=== PATIENT | male | born 1980 | race Caucasian/White ===

== ENCOUNTER → 2019-12-21 11:32 | Outpatient (CLI) | payer MEDICAID, SELFPAY ==
[2019-12-21 15:46] LABS: Anion Gap 8 (5-15); BUN 15 mg/dL (7-18); Chloride 102 mmol/L (98-107); Cholesterol 276 mg/dL (200); Creatinine, Serum 0.79 mg/dL (0.70-1.30); EST Glomerular Filtration Rate 117 mL/min (>60); Est Glom Filt Rate - Afr Amer 142 mL/min (>60); Glucose 179 mg/dL (74-106); High Density Lipoprotein 43 mg/dL; Potassium 4.7 mmol/L (3.5-5.1); Sodium Level 137 mmol/L (136-145); Triglycerides 250 mg/dL; Very Low Density Lipoprotein 50 mg/dL (5-40)
[2019-12-21 15:48] LABS: Hemoglobin A1c 9.1 % (3.8-5.6)
== END ==
PROVIDERS: PCP Family Medicine; Referring Provider Family Medicine; Visit Provider Family Medicine
DX: E11.9 Type 2 diabetes mellitus without complications (principal); I10 Essential (primary) hypertension
CPT/HCPCS: 36415; 80048; 80061; 83036

== ENCOUNTER → 2020-03-04 09:43 | Outpatient (CLI) | payer MEDICAID, SELFPAY ==
--- NOTE | 2020-03-04 09:48 | RAD_ITS ---
STUDY: X-RAY - LUMBAR SPINE REASON FOR EXAM: Male, 39 years old. Sciatica right side TECHNIQUE: 5 view(s) of the lumbar spine were obtained including oblique views. COMPARISON: None FINDINGS: Normal lumbar lordosis. There is no substantial scoliosis. There is a normal alignment of the vertebrae. There is multilevel endplate spondylosis of the lumbar vertebrae. Minimal loss of height of the superior endplate of the L1 vertebrae. Normal disc space heights. The soft tissue structures are unremarkable. RAD/L/S Spine Min 4 Views IMPRESSION: Degenerative changes of the spine, as detailed above. Minimal loss of height of the superior endplate of the L1 vertebrae. Electronically Signed: Sourav Kennedy, at 9:22 EST , Service support ,
== END ==
PROVIDERS: PCP Family Medicine; Referring Provider Family Medicine; Visit Provider Family Medicine
DX: M54.30 Sciatica, unspecified side (principal)
CPT/HCPCS: 72110

== ENCOUNTER → 2020-03-20 10:31 | Outpatient (CLI) | payer MEDICAID, SELFPAY ==
[2020-03-20 12:40] LABS: Anion Gap 7 (5-15); BUN 16 mg/dL (7-18); BUN/Creat Ratio 15.8 RATIO (10-20); Calcium,Total 8.9 mg/dL (8.5-10.1); Chloride 107 mmol/L (98-107); Cholesterol 325 mg/dL (200); Creatinine, Serum 1.01 mg/dL (0.70-1.30); EST Glomerular Filtration Rate 88 mL/min (>60); Est Glom Filt Rate - Afr Amer 106 mL/min (>60); Glucose 199 mg/dL (74-106); High Density Lipoprotein 39 mg/dL; Potassium 4.4 mmol/L (3.5-5.1); Sodium Level 136 mmol/L (136-145); Triglycerides 427 mg/dL
== END ==
PROVIDERS: PCP Family Medicine; Referring Provider Family Medicine; Visit Provider Family Medicine
DX: I10 Essential (primary) hypertension (principal)
CPT/HCPCS: 36415; 80048; 80061

== ENCOUNTER → 2020-04-11 12:41 | Outpatient (CLI) | payer MEDICAID, SELFPAY ==
[2020-04-10 10:03] VITALS: BMI 34.3
--- NOTE | 2020-04-11 12:42 | MRI_ITS ---
STUDY: MRI LUMBAR SPINE WITHOUT CONTRAST REASON FOR EXAM: Male, 39 years old. low back pain into R sciatica x few months TECHNIQUE: Standardized fat and water weighted pulse sequences were obtained in the sagittal and axial planes. COMPARISON: None FINDINGS: T12-L1: Normal endplates. Normal disc height, hydration and morphology. Normal bilateral facet joints. Normal central canal and bilateral lateral recesses. Normal bilateral intervertebral neural foramina. Normal lumbar lordosis. There is no substantial scoliosis. Normal conus medullaris that terminates at the L1-2: Normal endplates. Normal disc height, hydration and morphology. Normal bilateral facet joints. Normal central canal and bilateral lateral recesses. Normal bilateral intervertebral neural foramina. L2-3: Endplate spondylosis. Decreased disc height and small circumferential disc bulge. Degenerative changes of the bilateral facet joints. Mild narrowing of the central canal and bilateral intervertebral neural foramina. L3-4: Endplate spondylosis. Decreased disc height and small circumferential disc bulge. Degenerative changes of the bilateral facet joints. Moderate narrowing of the central canal and bilateral intervertebral neural foramina. There is a broad-based midline and right para midline disc ratio being on the right for nerve root. L4-5: Endplate spondylosis. Decreased disc height and small circumferential disc bulge. Degenerative changes of the bilateral facet joints. Moderate narrowing of the central canal and bilateral intervertebral neural foramina. There is a broad-based midline and right para midline disc herniation imaging on the right L5 nerve root. L5-S1: Endplate spondylosis. Decreased disc height and small circumferential disc bulge. Degenerative changes of the bilateral facet joints. Mild narrowing of the central canal and bilateral intervertebral neural foramina. There is broad-based central and paracentral disc herniation impinging on the right and left S1 nerve roots. Normal visualized sacral ala. Normal visualized paraspinous soft tissue structures. MRI/Spine Lumbar (Routine) IMPRESSION: Multilevel degenerative changes, as described above. Disc herniations noted at L3-4, L4-5 and L5-S1 as described above. Electronically Signed: Johnny Pineda MD at 16:03 EST Tel , Service support ,
== END ==
PROVIDERS: PCP Family Medicine; Referring Provider Orthopaedic Surgery; Visit Provider Orthopaedic Surgery
DX: G83.4 Cauda equina syndrome (principal); M54.5 Low back pain; R33.9 Retention of urine, unspecified
CPT/HCPCS: 72148

== ENCOUNTER 2020-05-09 13:35 | Observation (INO) | payer MEDICAID, SELFPAY ==
[2020-04-10 10:03] VITALS: BMI 34.3
--- NOTE | 2020-05-01 11:27 | EKG12_ITS ---
Test Reason : PREOP Blood Pressure : / mmHG Vent. Rate : 095 BPM Atrial Rate : 095 BPM P-R Int : 148 ms QRS Dur : 104 ms QT Int : 352 ms P-R-T Axes : 056 077 039 degrees QTc Int : 442 ms Normal sinus rhythm Normal ECG Confirmed by KARY VENCES, JEREMIAS ([id number]), associate editor MAZIN PUGH ([id number]) on 05/02/2020 1:07:36 PM Referred By: Anderson Celaya Confirmed By:JEREMIAS PRESTON MD
[2020-05-01 12:52] LABS: Anion Gap 8 (5-15); BUN 19 mg/dL (7-18); BUN/Creat Ratio 23.9 RATIO (10-20); Calcium,Total 9.2 mg/dL (8.5-10.1); Chloride 108 mmol/L (98-107); Creatinine, Serum 0.79 mg/dL (0.70-1.30); EST Glomerular Filtration Rate 116 mL/min (>60); Est Glom Filt Rate - Afr Amer 140 mL/min (>60); Glucose 117 mg/dL (74-106); Magnesium 2.5 mg/dL (1.6-2.6); Potassium 4.3 mmol/L (3.5-5.1); Sodium Level 140 mmol/L (136-145)
[2020-05-01 12:55] LABS: HIV - WCH Non-Reactive (Nonreactive)
[2020-05-02 03:07] LABS: HEPATITIS B SURFACE AG Negative (Negative); Hepatitis A AB, Total Negative (Negative); Hepatitis A IgM Antibody Negative (Negative); Hepatitis B Core AB IgM Negative (Negative); Hepatitis B Core Ab Total Negative (Negative); Hepatitis C Ab <0.1 s/co ratio (0.0-0.9)
[2020-05-02 08:54] LABS: Hep B Surface Antibodies Non Reactive (.)
[2020-05-08 10:30] LABS: Absolute Lymphocyte Count 3.79 X10^3/uL (0.83-4.51); Absolute Neutrophil Count 7.5 X10^3/uL (2.0-7.7); Basophil# 0.08 X10^3/uL; Basophil% 0.6 % (0-1); Eosinophil# 0.23 X10^3/uL; Eosinophils% 1.9 % (0-5); Hematocrit 51.1 % (40-54); Lymphocyte # 3.79 X10^3/ul (4.0); Lymphocyte % 30.8 % (19-41); Mean Corp Hgb Conc 33.3 g/dL (32-36); Mean Corpuscular Volume 87.2 fL (80-94); Mean Platelet Vol. 10.6 fl (6.2-12.0); Monocyte% 5.7 % (0-10); NRBC Flagged by Analyzer 0 % (0-5); Neutrophil # 7.47 X10^3/uL (2.7-7.7); Neutrophil % 60.6 % (47-70); Platelet Count 252 K/mm3 (150-450); RBC Distribution Width CV 13.8 % (11.6-14.6); RBC Distribution Width SD 44.3 fl (35.1-43.9); Red Blood Count 5.86 M/mm3 (4.6-6.2); White Blood Count 12.3 K/mm3 (4.4-11.0)
[2020-05-08 10:51] LABS: Hemoglobin A1c 7.5 % (3.8-5.6)
[2020-05-09] VITALS (15 sets, daily range): BP systolic 128–157; BP diastolic 76–97; PULSE 71–118; RESP 16–18; TEMP 36.1–36.8; O2SAT 91–100; BMI 35.1
--- NOTE | 2020-05-09 03:29 | HP_ITS ---
Intake Intake Visit Reasons: Lumbar Spine Accompanied by: Spouse Allergies meperidine [From Demerol] Adverse Reaction (Severe, Verified 05/01/20 09:41) hallucinaions Medications empagliflozin 25 mg tablet 25 mg PO DAILY 04/10/20 [History Confirmed 05/01/20] gabapentin 300 mg capsule 300 mg PO TID 04/10/20 [History Confirmed 05/01/20] glimepiride 2 mg tablet 2 mg PO DAILY 04/10/20 [History Confirmed 05/01/20] hydrocodone 10 mg-acetaminophen 325 mg tablet 1 tab PO Q4H PRN #60 tab 04/10/20 [Rx Confirmed 05/01/20] lisinopril 5 mg tablet 5 mg PO DAILY 04/10/20 [History Confirmed 05/01/20] naproxen 500 mg tablet 500 mg PO PRN PRN 04/10/20 [History Confirmed 05/01/20] tizanidine 4 mg tablet 4 mg PO PRN PRN 04/10/20 [History Confirmed 05/01/20] Bupropion HCl [Bupropion Xl] 300 mg PO DAILY 04/25/20 [History Confirmed 05/01/20] PFSH Medical History (Updated 04/10/20 @ 10:08 by Emily Brock) Arthritis (Acute) Diabetes mellitus (Acute) HTN (hypertension) (Chronic) Family History (Updated 04/10/20 @ 10:09 by Emily Brock) Father Hypertension Heart disease Social History (Updated 05/01/20 @ 10:[address] Anderson Celaya DO) Smoking Status: Current every day smoker tobacco type: cigarettes Tobacco: How many years used: 18 alcohol intake: current alcohol intake frequency: holidays/special occasions only HPI Lumbar Spine: Surgical H&P: Yes Details: Parts of this documentation were recorded by a scribe, this documentation accurately reflects the service provided and the decisions made by me, Dr. Anderson Celaya DO 05/01/20 0940. KALEY MASSEY is a 39 year old M here today to sign surgical consent. DOS: 05/09/2020. Kaley is here 8 days before his surgery. He is scheduled for lumbar laminectomy L3-4 and L4-5 on the right side. We discussed basically how the surgery would be performed what to expect postoperatively etc. he is in the company of his . I answered all her questions. We also spoke of possible risks and complications including possibly of coma paralysis infection meningitis failed to relieve symptoms blood clot in the legs blood clot in the lungs myocardial infarction stroke among others. I will see him again at surgery. Assessment & Plan Problems 1. HNP (herniated nucleus pulposus), lumbar M51.26 Coding Level of Care Code Off vis,est,level 2 Diagnoses HNP (herniated nucleus pulposus), lumbar M51.26 Time Spent (min) 20
[2020-05-09] MEDS: Acetaminophen 500 MG Tablet 1000 MG PO ×3 (06:19→21:13)
[2020-05-09] MEDS: Lactated Ringers 1,000 ML 100 ML IV ×5 (06:20→21:09)
[2020-05-09 06:30] LABS: Bedside Glucose 150 mg/dL (70-110)
[2020-05-09] MEDS: Thrombin 5,000 IU Kit (PSA) 5,000 IU Vial 5000 IU ×2 (08:35)
--- NOTE | 2020-05-09 08:42 | RAD_ITS ---
STUDY: X-RAY - LUMBAR SPINE REASON FOR EXAM: Male, 39 years old. Laminectomy. Intraoperative images. TECHNIQUE: A single lateral view(s) of the lumbar spine was obtained. COMPARISON: None FINDINGS: Single lateral view shows overlying surgical instruments located at the posterior aspect of the L5 vertebral body.. RAD/Spine 1 View Any Level IMPRESSION: Intraoperative documentation image as described. Electronically Signed: Josue Go MD at 12:30 EST , Service support ,
--- NOTE | 2020-05-09 10:53 | OP.PCM_ITS ---
Report of Operation Date of Procedure: 05/09/20 Description of Surgical Findings:: Preoperative diagnosis: #1 herniated disc L4-5 on the right #2 herniated disc L3-4 on the right Postoperative diagnoses: The same Procedure: #1 lumbar laminectomy L4-5 on the right #2 lumbar laminectomy L3-4 on the right Surgeon: Dr. Celaya emergency medicine physician assistant: Rocael BUSH Anesthesia: General endotracheal anesthesia administered by [facility] Estimated blood loss: 75 cc Drains: Medium Hemovac Complications: None Procedure: Patient was taken to the OR where he was placed under general endotracheal anesthesia on his gurney a Sharif catheter was inserted. Neuro monitoring placed all their leads on the patient. The patient was then placed on in the prone position on the Isaac frame. After appropriate positioning with care to protect his bony prominences his genitalia the brachial plexus bilaterally the ulnar nerves of both elbows and the cervical spine and facial features the back was prepped and draped in standard fashion. A longitudinal incision centered over L4 5 subcutaneous tissues were incised length of skin incision I then opened the lumbar fascia to the right of the spinous processes and elevated them off the lamina of 4 and little bit off the lamina of L5. An intraoperative x-ray was taken with a marker in place to assure that we were indeed at the L4-5 level which we were. We curetted all the soft tissues off of the ligamentum flavum and then released the underside of the ligamentum flavum using with curettes. I also thinned out the lamina with double-action rongeurs. I also performed a slight medial facetectomy using an osteotome 1/4 inch. Elevated all the ligamentum flavum off the underside of the lamina of L4. The laminectomy of L4 was then carried out with 45 degree Kerrison joint rongeurs and the lateral recesses were open with that and 90 degree Kerrison rongeurs and curved Kerrison rongeurs. In the fashion I was able to remove almost all of the ligamentum flavum on the lateral side. Then retracted the dura and the nerve root medialward exposing the herniated disc on the right side. Using a 15 blade I opened the protruded and thinned annulus. Note that it was mostly subligamentous. Protected that disc and other subligamentous disc with pituitary rongeurs. I also removed some of the disc from within the disc space with pituitary rongeurs. Bleeding was controlled with bipolar cautery and thrombin-soaked Gelfoam. Noted we thoroughly irrigated every 10 to 15 minutes in the course of the case with sterile saline to prevent infection. Then moved the Janeth retractor upward and first elevated the paravertebral muscles off the lamina of L3 all the way out lateralward and put a Janeth retractor: Lateral to the facet. Again I removed the soft tissues off of the ligamentum flavum at this level curettes. I then used curettes to release the underside of the ligament off the L3 lamina. I then perform medial facetectomy only slightly with 1/4 inch osteotome. I then thinned out the thickened lamina with double- action rongeurs bone wax was used to stop bony bleeding I begin the laminectomy process with 45 degree Kerrison rongeurs and carried carried up as far as the top of the ligamentum flavum I then remove the ligamentum flavum in retrograde fashion with 45 degree Kerrison rongeurs down to the lamina below. And used the curved leg 40 the Kerrison rongeurs to remove and open the lateral recess and remove all of the ligamentum flavum. Then retracted the L4 nerve root and dura medialward exposing the herniated disc I opened the posterior longitudinal ligament exposing the disc in 2 free fragments were removed. I then enlarged the tear in the annulus with a 15 blade to remove some of the nucleus from within the disc space with pituitary rongeurs. This completely decompressed the L4 nerve root. Again thorough irrigation was carried out frequently. Bipolar cautery was used to stop bleeders as well as thrombin-soaked Gelfoam. Had good hemostasis I then placed amnionic membrane patch over each of the 2 laminectomy sites. These were covered over it with Gelfoam. A medium Hemovac drain was then inserted. We then started closure I closed the lumbar fascia using [id number] suture with #1 Vicryl followed by closure of subcutaneous tissues in layers with 2-0 and 3-0 Vicryl in interrupted fashion and the skin was approximated using skin clips.. Sterile dressings were applied. That the medium Hemovac drain was sewed in place. Then her recover the patient in the OR moved him over to his hospital bed and taken to recovery in satisfactory condition this interoperative summary on Jonathan Salazar this is Dr. Celaya dictating.
[2020-05-09 11:31] LABS: Bedside Glucose 187 mg/dL (70-110)
[2020-05-09 12:10] LABS: Bedside Glucose 177 mg/dL (70-110)
[2020-05-09 14:56] LABS: Magnesium 2.4 mg/dL (1.6-2.6)
--- NOTE | 2020-05-09 15:49 | PN_ITS ---
Subjective: Patient seen and examined. Underwent lumbar laminectomy L4-L5 on the right and lumbar laminectomy L3-L4 on the right by Dr. Celaya. Patient denies significant pain currently. Denies new symptoms or complaints. He has a past medical history of hypertension, type 2 diabetes mellitus, depression, anxiety. States he had an hemoglobin A1c checked by his primary care provider a few months back however he does not know what his A1c was. - Physical Exam Vitals/I&O's: Vital Signs Temp Pulse Resp BP Pulse Ox 98.3 F 110 H 16 148/81 H 94 05/09/20 15:48 05/09/20 15:48 05/09/20 15:48 05/09/20 15:48 05/09/20 15:48 Oxygen Flow Rate (L/min) 6 Oxygen Delivery Method Room Air Weight: 281 lb 1.43 oz Body Mass Index (BMI) 35.1 Finger Stick Blood Glucose 177 Intake and Output for Last 24 Hours 05/07/20 05/08/20 05/09/20 23:59 23:59 23:59 Intake Total 3222.5 / 3222.5 Output Total 945 / 945 Balance 2277.5 / 2277.5 General: Alert, Oriented x3, Cooperative HEENT: Atraumatic, PERRLA, EOMI, Normocephalic Neck: Supple, No JVD, Negative Carotid Bruits Lungs: Clear to auscultation, Normal air movement Cardiovascular: Regular rate, No murmurs Abdomen: Bowel Sounds Present, Soft, Non Tender, Non-Distended Extremities: No clubbing, No cyanosis, No edema Skin: No rashes, No breakdown, - - Lumbar back postop dressing intact Musculoskeletal: No Tenderness to Palpation of Joints or Extremities, - - Left calf muscle wasting from prior injury Neurological: Cranial nerves II-XII grossly intact, Neuro grossly intact Psych/Mental Status: Normal Affect, Appropriate Microbiology Past 72 Hours 05/08/20 09:45 Interface Orders SARS-CoV-2 Antigen (Rapid) - Final Laboratory Results 05/09/20 06:16: POC Glucose 150 H 05/09/20 11:26: POC Glucose 187 H 05/09/20 12:04: POC Glucose 177 H 05/09/20 14:39: Magnesium 2.4 Current Medications Acetaminophen (Acetaminophen 500 Mg Tablet) 1,000 mg PO Q8 VALERI Hydrocodone Bitart/Acetaminophen (Hydrocodone Bitartrate/Apap 5/325 Tablet) 1 tablet PO Q4H PRN PRN PRN Reason: pain 6-10/10 Bupropion HCl (Bupropion (Xl) 300 Mg Tablet.Xl) 300 mg PO DAILY [facility] Dextrose (Dextrose 50%-Water 25 Gm/50 Ml Disp.Syrin) 0 gm IV X1 PRN; Protocol PRN Reason: Hypoglycemia Diazepam (Diazepam 5 Mg Tablet) 10 mg PO Q6H PRN PRN PRN Reason: Muscle Spasms Enteral Nutritional Formula (Ensure Surgery 237 Ml Liquid) 237 ml PO TIDCM [facility] Famotidine (Famotidine 20 Mg Tablet) 20 mg PO BID [facility] Gabapentin (Gabapentin 300 Mg Capsule) 300 mg PO TID [facility] Glucagon (Glucagon 1 Mg/Ml Syringe) 1 mg IM .X1 PRN PRN Reason: Hypoglycemia Hydralazine HCl (Hydralazine 20 Mg/Ml Vial) 10 mg IV Q4H PRN PRN PRN Reason: SBP > 160 Lactated Ringer's () 1,000 mls @ 100 mls/hr IV .Q10H [facility] Last Admin: 05/09/20 12:15 Dose: 100 mls/hr Documented by: Cefazolin Sodium () 1 gm in 50 mls @ 100 mls/hr IV Q8H [facility] Stop: 05/10/20 00:40 Influenza Virus Vaccine Quadrival (Influenza Vaccine (6mos+)/Pf 0.5 Ml Syringe) 0.5 ml IM .ONCE ONE Stop: 05/10/20 10:01 Insulin Human Lispro (Insulin Lispro 100 Unit/Ml Insuln.Pen) 0 unit SC ACHS [facility]; Protocol Lisinopril (Lisinopril 5 Mg Tablet) 5 mg PO DAILY [facility] Morphine Sulfate (Morphine 4 Mg/Ml Syringe) 2 - 4 mg IV Q2H PRN PRN PRN Reason: Pain Score 6-10 Ondansetron HCl (Ondansetron 4 Mg/2 Ml Vial) 4 mg IV Q8H PRN PRN PRN Reason: NAUSEA Senna/Docusate Sodium (Senna/Docusate Sodium 1 Tablet) 2 tablet PO BID [facility] Sodium Chloride (0.9% Nacl Peripheral Flush Adult/Peds) 5 - 15 ml IV UD PRN PRN Reason: SALINE FLUSH Tramadol HCl (Tramadol 50 Mg Tablet) 50 - 100 mg PO Q6H PRN PRN PRN Reason: Pain Score 4-5 Zolpidem Tartrate (Zolpidem Tartrate 5 Mg Tablet) 5 mg PO QHS PRN PRN PRN Reason: INSOMNIA Medical Necessity - Tobacco Use Smoking Status: Current every day smoker Tobacco Use: Cigarettes Assessment/Plan 1. Type 2 diabetes mellitus-hold oral regimen. Accu-Cheks with sliding scale insulin. Hemoglobin A1c 7.5%. 2. Hypertension-stable, continue lisinopril. As needed hydralazine for systolic blood pressure greater than 160. 3. Status post lumbar laminectomy L4-L5, L3-L4 on the right-management per Dr. Celaya, spine surgery. As needed pain regimen. PT/OT. 4. Depression/anxiety-on bupropion. 5. Obesity-encouraged diet lifestyle modifications. DVT prophylaxis-SCDs This patient was seen by AYESHA Kaye under the supervision of Dr. Chase.
[2020-05-09 17:00] LABS: Bedside Glucose 184 mg/dL (70-110)
[2020-05-09] MEDS: Cefazolin 1 GM/50 ML BAG IV (17:15)
[2020-05-09] MEDS: Gabapentin 300 MG Capsule PO ×2 (17:17)
[2020-05-09] MEDS: Insulin Lispro 100 UNIT/ML INSULN.PEN SC ×2 (17:18→21:19)
[2020-05-09] MEDS: Ensure Surgery 237 ML LIQUID PO (17:22)
[2020-05-09] MEDS: Lisinopril 5 MG Tablet PO (18:27)
[2020-05-09] MEDS: HYDROcodone Bitartrate/Apap 5/325 Tablet PO (18:31)
[2020-05-09] MEDS: Senna/Docusate Sodium 1 Tablet 2 TABLET PO (21:13)
[2020-05-09] MEDS: Famotidine 20 MG Tablet PO (21:13)
[2020-05-09 21:51] LABS: Bedside Glucose 179 mg/dL (70-110)
[2020-05-10] MEDS: Cefazolin 1 GM/50 ML BAG IV (00:33)
[2020-05-10 05:30] VITALS: BP 136/89; PULSE 97; RESP 16; TEMP 36.6; O2SAT 96
[2020-05-10] MEDS: Gabapentin 300 MG Capsule PO ×2 (06:26→13:13)
[2020-05-10] MEDS: Acetaminophen 500 MG Tablet 1000 MG PO (06:26)
[2020-05-10] MEDS: traMADol 50 MG Tablet PO (06:31)
[2020-05-10 06:39] LABS: Absolute Lymphocyte Count 3.88 X10^3/uL (0.83-4.51); Absolute Neutrophil Count 11.6 X10^3/uL (2.0-7.7); Basophil# 0.04 X10^3/uL; Basophil% 0.2 % (0-1); Eosinophil# 0.15 X10^3/uL; Eosinophils% 0.9 % (0-5); Hematocrit 49.1 % (40-54); Hemoglobin 15.9 g/dL (13.0-16.5); Lymphocyte # 3.88 X10^3/ul (4.0); Lymphocyte % 23.1 % (19-41); Mean Corp Hgb Conc 32.4 g/dL (32-36); Mean Corpuscular Hgb 28.5 pg (27.0-32.0); Mean Corpuscular Volume 88.2 fL (80-94); Mean Platelet Vol. 10.2 fl (6.2-12.0); Monocyte# 1.06 X10^3/uL; Monocyte% 6.3 % (0-10); NRBC Flagged by Analyzer 0 % (0-5); Neutrophil # 11.63 X10^3/uL (2.7-7.7); Neutrophil % 69.1 % (47-70); Platelet Count 279 K/mm3 (150-450); RBC Distribution Width CV 13.7 % (11.6-14.6); RBC Distribution Width SD 44.1 fl (35.1-43.9); Red Blood Count 5.57 M/mm3 (4.6-6.2); White Blood Count 16.8 K/mm3 (4.4-11.0)
[2020-05-10 06:46] LABS: Bedside Glucose 149 mg/dL (70-110)
[2020-05-10] MEDS: Lactated Ringers 1,000 ML 100 ML IV (06:46)
[2020-05-10 07:08] LABS: ALB/GLOB Ratio 0.9 RATIO (0.9-2.4); AST(SGOT) 15 U/L (15-37); Alanine Aminotransfer ALT/SGPT 23 U/L (16-61); Albumin, Serum 3.2 g/dL (3.2-5.0); Alkaline Phosphatase 62 U/L (45-117); Anion Gap 7 (5-15); BUN 15 mg/dL (7-18); BUN/Creat Ratio 20.4 RATIO (10-20); Calcium,Total 8.9 mg/dL (8.5-10.1); Chloride 105 mmol/L (98-107); Creatinine, Serum 0.73 mg/dL (0.70-1.30); EST Glomerular Filtration Rate 127 mL/min (>60); Est Glom Filt Rate - Afr Amer 153 mL/min (>60); Estimated Creatinine Clearance 163.98 ml/min; Globulin 3.6 g/dL (2.2-4.2); Glucose 123 mg/dL (74-106); Potassium 4.2 mmol/L (3.5-5.1); Protein, Total 6.8 g/dL (6.4-8.2); Sodium Level 139 mmol/L (136-145)
[2020-05-10 07:28] VITALS: O2SAT 93
[2020-05-10] MEDS: Lisinopril 5 MG Tablet PO (09:02)
[2020-05-10] MEDS: Senna/Docusate Sodium 1 Tablet 2 TABLET PO (09:02)
[2020-05-10] MEDS: Famotidine 20 MG Tablet PO (09:02)
[2020-05-10] MEDS: buPROPion (XL) 300 MG TABLET.XL PO (09:02)
[2020-05-10] MEDS: Ensure Surgery 237 ML LIQUID PO (09:03)
[2020-05-10 10:30] VITALS: BP 136/76; PULSE 97; RESP 18; TEMP 36.6; O2SAT 97
--- NOTE | 2020-05-10 10:52 | PCM.PROGNOTE ---
<Antonia Maldonado POLE TESTER - Last Filed: 05/10/20 10:59> Subjective: Patient seen and examined. Currently reports increased pain which he feels is related to his drain. Requesting Sharif to be removed so he can move around more freely. Denies other symptoms or complaints. - Physical Exam Vitals/I&O's: Vital Signs Temp Pulse Resp BP Pulse Ox 97.8 F 97 16 136/89 H 93 05/10/20 05:30 05/10/20 05:30 05/10/20 05:30 05/10/20 05:30 05/10/20 07:28 Oxygen Flow Rate (L/min) 6 Oxygen Delivery Method Room Air Weight: 281 lb 1.43 oz Body Mass Index (BMI) 35.1 Finger Stick Blood Glucose 177 Intake and Output for Last 24 Hours 05/08/20 05/09/20 05/10/20 23:59 23:59 23:59 Intake Total 4622.5 / 4622.5 / Output Total 1745 / 1745 3470 / 3470 Balance 2877.5 / 2877.5 -1458.33 / -1458.33 General: Alert, Oriented x3, Cooperative HEENT: Atraumatic, PERRLA, EOMI, Normocephalic Neck: Supple, No JVD, Negative Carotid Bruits Lungs: Clear to auscultation, Normal air movement Cardiovascular: Regular rate, No murmurs Abdomen: Bowel Sounds Present, Soft, Non Tender Extremities: No clubbing, No cyanosis, No edema, Capillary Refill Less than 3 Seconds Skin: No rashes, No breakdown, - - Lumbar dressing, drain intact. Musculoskeletal: No Tenderness to Palpation of Joints or Extremities Neurological: Cranial nerves II-XII grossly intact, Neuro grossly intact Psych/Mental Status: Normal Affect, Appropriate Microbiology Past 72 Hours 05/08/20 09:45 Interface Orders SARS-CoV-2 Antigen (Rapid) - Final Laboratory Results 05/09/20 11:26: POC Glucose 187 H 05/09/20 12:04: POC Glucose 177 H 05/09/20 14:39: Magnesium 2.4 05/09/20 16:56: POC Glucose 184 H 05/09/20 21:18: POC Glucose 179 H 05/10/20 06:15: WBC 16.8 H, RBC 5.57, Hgb 15.9, Hct 49.1, MCV 88.2, MCH 28.5, MCHC 32.4, RDW Std Deviation 44.1 H, RDW Coeff of Gilda 13.7, Plt Count 279, MPV 10.2, Immature Gran % (Auto) 0.400, Neut % (Auto) 69.1, Lymph % (Auto) 23.1, [place] % (Auto) 6.3, Eos % (Auto) 0.9, Baso % (Auto) 0.2, Absolute Neuts (auto) 11.6 H, Absolute Lymphs (auto) 3.88, Nucleated RBC % 0 05/10/20 06:15: Sodium 139, Potassium 4.2, Chloride 105, Carbon Dioxide 27.0, Anion Gap 7, BUN 15, Creatinine 0.73, Estim Creat Clear Calc 163.98, Est GFR (MDRD) Af Amer 153, Est GFR (MDRD) Non-Af 127, BUN/Creatinine Ratio 20.4 H, Glucose 123 H, Calcium 8.9, Total Bilirubin 0.50, AST 15, ALT 23, Alkaline Phosphatase 62, Total Protein 6.8, Albumin 3.2, Globulin 3.6, Albumin/Globulin Ratio 0.9 05/10/20 06:32: POC Glucose 149 H Current Medications Acetaminophen (Acetaminophen 500 Mg Tablet) 1,000 mg PO Q8 [facility] Last Admin: 05/10/20 06:26 Dose: 1,000 mg Documented by: Hydrocodone Bitart/Acetaminophen (Hydrocodone Bitartrate/Apap 5/325 Tablet) 1 tablet PO Q4H PRN PRN PRN Reason: pain 6-1010 Last Admin: 05/09/20 18:31 Dose: 1 tablet Documented by: Bupropion HCl (Bupropion (Xl) 300 Mg Tablet.Xl) 300 mg PO DAILY [facility] Last Admin: 05/10/20 09:02 Dose: 300 mg Documented by: Dextrose (Dextrose 50%-Water 25 Gm/50 Ml Disp.Syrin) 0 gm IV X1 PRN; Protocol PRN Reason: Hypoglycemia Diazepam (Diazepam 5 Mg Tablet) 10 mg PO Q6H PRN PRN PRN Reason: Muscle Spasms Enteral Nutritional Formula (Ensure Surgery 237 Ml Liquid) 237 ml PO TIDCM [facility] Last Admin: 05/10/20 09:03 Dose: 237 ml Documented by: Famotidine (Famotidine 20 Mg Tablet) 20 mg PO BID [facility] Last Admin: 05/10/20 09:02 Dose: 20 mg Documented by: Gabapentin (Gabapentin 300 Mg Capsule) 300 mg PO TID [facility] Last Admin: 05/10/20 06:26 Dose: 300 mg Documented by: Glucagon (Glucagon 1 Mg/Ml Syringe) 1 mg IM .X1 PRN PRN Reason: Hypoglycemia Hydralazine HCl (Hydralazine 20 Mg/Ml Vial) 10 mg IV Q4H PRN PRN PRN Reason: SBP > 160 Lactated Ringer's () 1,000 mls @ 100 mls/hr IV .Q10H [facility] Last Admin: 05/10/20 06:46 Dose: 100 mls/hr Documented by: Insulin Human Lispro (Insulin Lispro 100 Unit/Ml Insuln.Pen) 0 unit SC [facility]; Protocol Last Admin: 05/10/20 06:33 Dose: Not Given Documented by: Lisinopril (Lisinopril 5 Mg Tablet) 5 mg PO DAILY [facility] Last Admin: 05/10/20 09:02 Dose: 5 mg Documented by: Morphine Sulfate (Morphine 4 Mg/Ml Syringe) 2 - 4 mg IV Q2H PRN PRN PRN Reason: Pain Score 6-10 Ondansetron HCl (Ondansetron 4 Mg/2 Ml Vial) 4 mg IV Q8H PRN PRN PRN Reason: NAUSEA Senna/Docusate Sodium (Senna/Docusate Sodium 1 Tablet) 2 tablet PO BID [facility] Last Admin: 05/10/20 09:02 Dose: 2 tablet Documented by: Sodium Chloride (0.9% Nacl Peripheral Flush Adult/Peds) 5 - 15 ml IV UD PRN PRN Reason: SALINE FLUSH Tramadol HCl (Tramadol 50 Mg Tablet) 50 - 100 mg PO Q6H PRN PRN PRN Reason: Pain Score 4-5 Last Admin: 05/10/20 06:31 Dose: 100 mg Documented by: Zolpidem Tartrate (Zolpidem Tartrate 5 Mg Tablet) 5 mg PO QHS PRN PRN PRN Reason: INSOMNIA Medical Necessity - Tobacco Use Smoking Status: Current every day smoker Tobacco Use: Cigarettes Assessment/Plan 1. Type 2 diabetes mellitus-hold oral regimen. Accu-Cheks with sliding scale insulin. Hemoglobin A1c 7.5%. 2. Hypertension-stable, continue lisinopril. As needed hydralazine for systolic blood pressure greater than 160. 3. Status post lumbar laminectomy L4-L5, L3-L4 on the right-management per Dr. Celaya, spine surgery. As needed pain regimen. PT/OT. 4. Depression/anxiety-on bupropion. 5. Obesity-encouraged diet lifestyle modifications. DVT prophylaxis-SCDs This patient was seen by AYESHA Kaye under the supervision of Dr. Caraballo. <Renata Caraballo - Last Filed: 05/10/20 16:05> - Physical Exam Vitals/I&O's: Vital Signs Temp Pulse Resp BP Pulse Ox 97.9 F 97 18 136/76 H 97 05/10/20 10:30 05/10/20 10:30 05/10/20 10:30 05/10/20 10:30 05/10/20 10:30 Oxygen Flow Rate (L/min) 6 Oxygen Delivery Method Room Air Weight: 281 lb 1.43 oz Body Mass Index (BMI) 35.1 Finger Stick Blood Glucose 177 Intake and Output for Last 24 Hours 05/08/20 05/09/20 05/10/20 23:59 23:59 23:59 Intake Total 4622.5 / 4622.5 2491.67 / 2491.67 Output Total 1745 / 1745 4470 / 4470 Balance 2877.5 / 2877.5 -1978.33 / -1978.33 Microbiology Past 72 Hours 05/08/20 09:45 Interface Orders SARS-CoV-2 Antigen (Rapid) - Final Laboratory Results 05/09/20 16:56: POC Glucose 184 H 05/09/20 21:18: POC Glucose 179 H 05/10/20 06:15: WBC 16.8 H, RBC 5.57, Hgb 15.9, Hct 49.1, MCV 88.2, MCH 28.5, MCHC 32.4, RDW Std Deviation 44.1 H, RDW Coeff of Gilda 13.7, Plt Count 279, MPV 10.2, Immature Gran % (Auto) 0.400, Neut % (Auto) 69.1, Lymph % (Auto) 23.1, [place] % (Auto) 6.3, Eos % (Auto) 0.9, Baso % (Auto) 0.2, Absolute Neuts (auto) 11.6 H, Absolute Lymphs (auto) 3.88, Nucleated RBC % 0 05/10/20 06:15: Sodium 139, Potassium 4.2, Chloride 105, Carbon Dioxide 27.0, Anion Gap 7, BUN 15, Creatinine 0.73, Estim Creat Clear Calc 163.98, Est GFR (MDRD) Af Amer 153, Est GFR (MDRD) Non-Af 127, BUN/Creatinine Ratio 20.4 H, Glucose 123 H, Calcium 8.9, Total Bilirubin 0.50, AST 15, ALT 23, Alkaline Phosphatase 62, Total Protein 6.8, Albumin 3.2, Globulin 3.6, Albumin/Globulin Ratio 0.9 05/10/20 06:32: POC Glucose 149 H 05/10/20 11:17: POC Glucose 211 H Current Medications Acetaminophen (Acetaminophen 500 Mg Tablet) 1,000 mg PO Q8 [facility] Last Admin: 05/10/20 14:33 Dose: Not Given Documented by: Hydrocodone Bitart/Acetaminophen (Hydrocodone Bitartrate/Apap 5/325 Tablet) 1 tablet PO Q4H PRN PRN PRN Reason: pain 6-1010 Last Admin: 05/10/20 13:13 Dose: 1 tablet Documented by: Bupropion HCl (Bupropion (Xl) 300 Mg Tablet.Xl) 300 mg PO DAILY [facility] Last Admin: 05/10/20 09:02 Dose: 300 mg Documented by: Dextrose (Dextrose 50%-Water 25 Gm/50 Ml Disp.Syrin) 0 gm IV X1 PRN; Protocol PRN Reason: Hypoglycemia Diazepam (Diazepam 5 Mg Tablet) 10 mg PO Q6H PRN PRN PRN Reason: Muscle Spasms Enteral Nutritional Formula (Ensure Surgery 237 Ml Liquid) 237 ml PO TIDCM [facility] Last Admin: 05/10/20 13:15 Dose: Not Given Documented by: Famotidine (Famotidine 20 Mg Tablet) 20 mg PO BID [facility] Last Admin: 05/10/20 09:02 Dose: 20 mg Documented by: Gabapentin (Gabapentin 300 Mg Capsule) 300 mg PO TID [facility] Last Admin: 05/10/20 13:13 Dose: 300 mg Documented by: Glucagon (Glucagon 1 Mg/Ml Syringe) 1 mg IM .X1 PRN PRN Reason: Hypoglycemia Hydralazine HCl (Hydralazine 20 Mg/Ml Vial) 10 mg IV Q4H PRN PRN PRN Reason: SBP > 160 Lactated Ringer's () 1,000 mls @ 100 mls/hr IV .Q10H [facility] Last Admin: 05/10/20 06:46 Dose: 100 mls/hr Documented by: Insulin Human Lispro (Insulin Lispro 100 Unit/Ml Insuln.Pen) 0 unit SC ACHS [facility]; Protocol Last Admin: 05/10/20 11:18 Dose: 2 u Documented by: Lisinopril (Lisinopril 5 Mg Tablet) 5 mg PO DAILY [facility] Last Admin: 05/10/20 09:02 Dose: 5 mg Documented by: Morphine Sulfate (Morphine 4 Mg/Ml Syringe) 2 - 4 mg IV Q2H PRN PRN PRN Reason: Pain Score 6-10 Ondansetron HCl (Ondansetron 4 Mg/2 Ml Vial) 4 mg IV Q8H PRN PRN PRN Reason: NAUSEA Senna/Docusate Sodium (Senna/Docusate Sodium 1 Tablet) 2 tablet PO BID [facility] Last Admin: 05/10/20 09:02 Dose: 2 tablet Documented by: Sodium Chloride (0.9% Nacl Peripheral Flush Adult/Peds) 5 - 15 ml IV UD PRN PRN Reason: SALINE FLUSH Tramadol HCl (Tramadol 50 Mg Tablet) 50 - 100 mg PO Q6H PRN PRN PRN Reason: Pain Score 4-5 Last Admin: 05/10/20 06:31 Dose: 100 mg Documented by: Zolpidem Tartrate (Zolpidem Tartrate 5 Mg Tablet) 5 mg PO QHS PRN PRN PRN Reason: INSOMNIA Assessment/Plan Patient seen by Antonia Maldonado NP-Logan under my supervision Patient seen and examined. Today is POD 1 for lumbar laminectomy on L4-L5 and L3-L4. Hospitalist service was consulted for management of diabetes and hypertension. Patient complains of back pain this morning and said pain was 8 out of 10. He had no other complaints and review of systems otherwise negative. O/E: Vital Signs Temp Pulse Resp BP Pulse Ox 97.9 F 97 18 136/76 H 97 05/10/20 10:30 05/10/20 10:30 05/10/20 10:30 05/10/20 10:30 05/10/20 10:30 General: Alert, Oriented x3, Cooperative HEENT: Atraumatic, PERRLA, EOMI, Normocephalic Neck: Supple, No JVD, Negative Carotid Bruits Lungs: Clear to auscultation, Normal air movement Cardiovascular: Regular rate, No murmurs Abdomen: Bowel Sounds Present, Soft, Non Tender Extremities: No clubbing, No cyanosis, No edema, Capillary Refill Less than 3 Seconds Skin: No rashes, No breakdown, - - Lumbar dressing, back drain in place Musculoskeletal: No Tenderness to Palpation of Joints or Extremities Neurological: Cranial nerves II-XII grossly intact, Neuro grossly intact Psych/Mental Status: Normal Affect, Appropriate Plan is to continue with lisinopril. ISS. Accuchecks ACHS. IV hydralazine prn for elevated BP. Spine surgery on board. PT/OT consult. Fall precautions Rest as per Antonia Maldonado POLE TESTER-C's note, which I have reviewed and reconciled. Inpatient E&M: 13408 Subs Hosp L2
[2020-05-10] MEDS: Insulin Lispro 100 UNIT/ML INSULN.PEN SC (11:18)
[2020-05-10 11:25] LABS: Bedside Glucose 211 mg/dL (70-110)
--- NOTE | 2020-05-10 11:45 | CASEMGMT ---
RN ДМИТРИЙ Face to Face with patient for initial transition planning/care coordination assessment. RN CM introduced self and role at [facility]. Patient sitting at edge of bed, alert and oriented. Patient willing to participate in assessment and is able to answer all questions appropriately. Care providers, pharmacy, and demographics verified. Patient wishes to discharge home, denies need for home health at this time. Patient states he has no further needs or concerns at this time. CM to follow for discharge planning needs that may arise. PCP: Deepti Specialists: romie Celaya Pharmacy: [facility] Insurance: [employer] Prescription Benefit: yes Living Will/HPOA: none LNOK: Living Arrangements: Patient lives with in a 2 story home with option for bed and bath on first floor. Patient states he was independent at home. Transportation: DME/HHC: Patient states he has knee scooter and cane at home. Patient is requesting walker at discharge. Script received for FWW. Patient was provided a list of DME providers consistent with the patient?s preferred geographic region, medical needs, and insurance network. The patient?s preferred provider is [facility] [place]. Referral sent to [facility] [place] and arranged for deliver of walker to patient's room prior to discharge. Disposition Plan: Patient to discharge home with family support and follow-up plans in place. Gunjan GRAY, RN, CM
[2020-05-10] MEDS: HYDROcodone Bitartrate/Apap 5/325 Tablet PO (13:13)
--- NOTE | 2020-05-10 16:42 | PCM.DC.BLA ---
Discharge Summary Date of Admission: 05/09/20 Date of Discharge: 05/10/20 - Physical Exam Vitals/I&O's: Vital Signs Temp Pulse Resp BP Pulse Ox 97.9 F 97 18 136/76 H 97 05/10/20 10:30 05/10/20 10:30 05/10/20 10:30 05/10/20 10:30 05/10/20 10:30 Oxygen Flow Rate (L/min) 6 Oxygen Delivery Method Room Air Weight: 281 lb 1.43 oz Body Mass Index (BMI) 35.1 Finger Stick Blood Glucose 177 Intake and Output for Last 24 Hours 05/08/20 05/09/20 05/10/20 23:59 23:59 23:59 Intake Total 4622.5 / 4622.5 2491.67 / 2491.67 Output Total 1745 / 1745 4470 / 4470 Balance 2877.5 / 2877.5 -1977.33 / -1977.33 Microbiology Past 72 Hours 05/08/20 09:45 Interface Orders SARS-CoV-2 Antigen (Rapid) - Final Laboratory Results 05/09/20 16:56: POC Glucose 184 H 05/09/20 21:18: POC Glucose 179 H 05/10/20 06:15: WBC 16.8 H, RBC 5.57, Hgb 15.9, Hct 49.1, MCV 88.2, MCH 28.5, MCHC 32.4, RDW Std Deviation 44.1 H, RDW Coeff of Gilda 13.7, Plt Count 279, MPV 10.2, Immature Gran % (Auto) 0.400, Neut % (Auto) 69.1, Lymph % (Auto) 23.1, [place] % (Auto) 6.3, Eos % (Auto) 0.9, Baso % (Auto) 0.2, Absolute Neuts (auto) 11.6 H, Absolute Lymphs (auto) 3.88, Nucleated RBC % 0 05/10/20 06:15: Sodium 139, Potassium 4.2, Chloride 105, Carbon Dioxide 27.0, Anion Gap 7, BUN 15, Creatinine 0.73, Estim Creat Clear Calc 163.98, Est GFR (MDRD) Af Amer 153, Est GFR (MDRD) Non-Af 127, BUN/Creatinine Ratio 20.4 H, Glucose 123 H, Calcium 8.9, Total Bilirubin 0.50, AST 15, ALT 23, Alkaline Phosphatase 62, Total Protein 6.8, Albumin 3.2, Globulin 3.6, Albumin/Globulin Ratio 0.9 05/10/20 06:32: POC Glucose 149 H 05/10/20 11:17: POC Glucose 211 H Current Medications Acetaminophen (Acetaminophen 500 Mg Tablet) 1,000 mg PO Q8 [facility] Last Admin: 05/10/20 14:33 Dose: Not Given Documented by: Hydrocodone Bitart/Acetaminophen (Hydrocodone Bitartrate/Apap 5/325 Tablet) 1 tablet PO Q4H PRN PRN PRN Reason: pain 6-12/08 Last Admin: 05/10/20 13:13 Dose: 1 tablet Documented by: Bupropion HCl (Bupropion (Xl) 300 Mg Tablet.Xl) 300 mg PO DAILY [facility] Last Admin: 05/10/20 09:02 Dose: 300 mg Documented by: Dextrose (Dextrose 50%-Water 25 Gm/50 Ml Disp.Syrin) 0 gm IV X1 PRN; Protocol PRN Reason: Hypoglycemia Diazepam (Diazepam 5 Mg Tablet) 10 mg PO Q6H PRN PRN PRN Reason: Muscle Spasms Enteral Nutritional Formula (Ensure Surgery 237 Ml Liquid) 237 ml PO TIDCM [facility] Last Admin: 05/10/20 13:15 Dose: Not Given Documented by: Famotidine (Famotidine 20 Mg Tablet) 20 mg PO BID [facility] Last Admin: 05/10/20 09:02 Dose: 20 mg Documented by: Gabapentin (Gabapentin 300 Mg Capsule) 300 mg PO TID [facility] Last Admin: 05/10/20 13:13 Dose: 300 mg Documented by: Glucagon (Glucagon 1 Mg/Ml Syringe) 1 mg IM .X1 PRN PRN Reason: Hypoglycemia Hydralazine HCl (Hydralazine 20 Mg/Ml Vial) 10 mg IV Q4H PRN PRN PRN Reason: SBP > 160 Lactated Ringer's () 1,000 mls @ 100 mls/hr IV .Q10H [facility] Last Admin: 05/10/20 06:46 Dose: 100 mls/hr Documented by: Insulin Human Lispro (Insulin Lispro 100 Unit/Ml Insuln.Pen) 0 unit SC ACHS [facility]; Protocol Last Admin: 05/10/20 11:18 Dose: 2 u Documented by: Lisinopril (Lisinopril 5 Mg Tablet) 5 mg PO DAILY [facility] Last Admin: 05/10/20 09:02 Dose: 5 mg Documented by: Morphine Sulfate (Morphine 4 Mg/Ml Syringe) 2 - 4 mg IV Q2H PRN PRN PRN Reason: Pain Score 6-10 Ondansetron HCl (Ondansetron 4 Mg/2 Ml Vial) 4 mg IV Q8H PRN PRN PRN Reason: NAUSEA Senna/Docusate Sodium (Senna/Docusate Sodium 1 Tablet) 2 tablet PO BID [facility] Last Admin: 05/10/20 09:02 Dose: 2 tablet Documented by: Sodium Chloride (0.9% Nacl Peripheral Flush Adult/Peds) 5 - 15 ml IV UD PRN PRN Reason: SALINE FLUSH Tramadol HCl (Tramadol 50 Mg Tablet) 50 - 100 mg PO Q6H PRN PRN PRN Reason: Pain Score 4-5 Last Admin: 05/10/20 06:31 Dose: 100 mg Documented by: Zolpidem Tartrate (Zolpidem Tartrate 5 Mg Tablet) 5 mg PO QHS PRN PRN PRN Reason: INSOMNIA
--- NOTE | 2020-05-10 16:43 | DCINST_ITS ---
Discharge Activity: May Not Drive, May not drive while taking narcotic pain medications., Use Walker May shower in (days): 5 Weight Bearing Status: Full weight bearing Call your doctor if your incision/area has: Increased Pain/ Swelling, Foul Smelling Discharge Call your doctor if you observe: Fever of 101 or Higher, Inability to urinate, Shortness of breath, Chest pain, Uncontrolled pain Remove Dressing in (days):: 4 Cleanse incision/area with: Soap & Water Allergies/Adverse Reactions: Allergies meperidine [From Demerol] Adverse Reaction (Severe, Verified 05/09/20 05:35) hallucinaions Medications to take at Discharge empagliflozin 25 mg tablet 25 mg PO DAILY 04/10/20 glimepiride 2 mg tablet 2 mg PO DAILY 04/10/20 hydrocodone 10 mg-acetaminophen 325 mg tablet 1 tab PO Q4H PRN #60 tab 04/10/20 lisinopril 5 mg tablet 5 mg PO DAILY 04/10/20 naproxen 500 mg tablet 500 mg PO PRN PRN 04/10/20 tizanidine 4 mg tablet 4 mg PO PRN PRN 04/10/20 Bupropion HCl [Bupropion Xl] 300 mg PO DAILY 04/25/20 Insulin Lispro [Humalog KwikPen] See Protocol SC ACHS insuln.pen 05/10/20 Primary Care Physician: Jeremiah Tatum MD [Primary Care Provider] - Test Results: Test results from this visit will be discussed in further detail at your follow- up appointment, if applicable. Please Follow Up With: Dr Celaya Proposed Discharge Date: 05/10/20
[2020-05-10 16:48] VITALS: BP 144/83; PULSE 98; RESP 18; TEMP 36.7; O2SAT 98
[2020-05-10 16:49] VITALS: BP 144/83; PULSE 98; RESP 18; TEMP 36.7; O2SAT 97
== END 2020-05-10 17:28 | disposition home or self-care (01) ==
LOC: SDC 14:06 → MS3 14:06
PROVIDERS: Anesthesiology; Family Medicine; Admitting Provider Orthopaedic Surgery; PCP Family Medicine; Referring Provider Orthopaedic Surgery; Visit Provider Student in an Organized Health Care Education/Training Program
PROC: (CPT 63030; principal; 2020-05-09 07:00)
DX: M51.26 Other intervertebral disc displacement, lumbar region (principal); Z23 Encounter for immunization; I10 Essential (primary) hypertension; E11.9 Type 2 diabetes mellitus without complications; G25.81 Restless legs syndrome; E78.00 Pure hypercholesterolemia, unspecified; F41.9 Anxiety disorder, unspecified; F32.9 Major depressive disorder, single episode, unspecified; E66.9 Obesity, unspecified; F17.210 Nicotine dependence, cigarettes, uncomplicated; Z79.84 Long term (current) use of oral hypoglycemic drugs; Z20.828 Contact with and (suspected) exposure to other viral communicable diseases; Z79.899 Other long term (current) drug therapy; Z68.35 Body mass index [BMI] 35.0-35.9, adult
CPT/HCPCS: 63047; 63048; 36415; 72020; 80048; 80053; 82962; 83036; 83735; 85025; 86703; 86704; 86705; 86706; 86708; 86709; 86803; 87081; 87340; 87426; 93005; 96361; 96365; 96366; 97162; 97530; 99218; 99251; 99406; C9803; J7120; 90686; A4216; G0378; G0379; G0463

== ENCOUNTER → 2020-07-05 12:20 | Outpatient (CLI) | payer MEDICAID, SELFPAY ==
[2020-07-01 09:35] VITALS: BMI 35.1
--- NOTE | 2020-07-05 12:21 | MRI_ITS ---
STUDY: MRI LUMBAR SPINE WITH AND WITHOUT CONTRAST REASON FOR EXAM: Male, 39 years old. Low back pain x1 week. Possible herniated disc. TECHNIQUE: Standardized fat and water weighted pulse sequences were obtained in the sagittal and axial planes. 27ml Dotarem via IV was administered for the contrast portion of the examination. COMPARISON: MRI lumbar spine without contrast 04/11/2020. FINDINGS: T11-T12: (Sagittal only). Anterior marginal spurs. Normal endplates. Minimal disc space height narrowing. Small posterior bulging disc. Normal central canal and bilateral intervertebral neural foramina. T12-L1: (Sagittal only). Normal endplates. Normal disc height, hydration and morphology. Normal central canal and bilateral intervertebral neural foramina. Normal lumbar lordosis. There is no substantial scoliosis. Normal conus medullaris that terminates at the upper L1 vertebral body level. L1-2: Normal endplates. Normal disc height, hydration and morphology. Normal bilateral facet joints. Normal central canal and bilateral lateral recesses. Normal bilateral intervertebral neural foramina. L2-3: Normal endplates. Prominent anterior disc protrusion is unchanged. Minimal disc space height narrowing. Mild central canal stenosis with an AP canal diameter of 11 mm is unchanged. Prominent dorsal epidural lipomatosis. Normal bilateral lateral recesses. Normal facet joints. Normal bilateral intervertebral neural foramina. L3-4: Normal endplates. Minimal disc space height narrowing. Nonenhancing recurrent right posterior caudal disc extrusion surrounded by enhancing postoperative fibrosis. This is displacing the right L4 nerve root sleeve. Right L3 hemilaminectomy with enhancing fibrosis behind the laminectomy site and the right lateral extradural space. Partial right L3 inferior facetectomy. Normal remaining facet joints. Normal bilateral intervertebral neural foramina. L4-5: Normal endplates. Mild disc space height narrowing. Right L4 hemilaminotomy defect. Mild central canal stenosis with an AP canal diameter of 9 mm. Normal bilateral lateral recesses. Mild left degenerative facet arthropathy. Normal right facet joint. Normal bilateral intervertebral neural foramina. L5-S1: Normal endplates. Normal disc height. Small posterior bulging disc but no ventral extradural defect due to presence of ventral epidural fat. Mild central canal stenosis with an AP canal diameter of 8.4 mm. This is due to developmentally short pedicles. Normal bilateral lateral recesses. Normal facet joints. Normal bilateral intervertebral neural foramina. Normal visualized sacral ala. Normal visualized paraspinous soft tissue structures. Small midline postop seroma behind the L3 spinous process surrounding by enhancing postoperative fibrosis. The enhancing postoperative fibrosis extends down to overlie the L4 and L5 spinous processes. MRI/Spine Lumbar W/WO Contrast IMPRESSION: 1. Recurrent right L3-L4 posterior caudal disc extrusion surrounding by enhancing postoperative fibrosis. This is displacing the right L4 nerve root sleeve. 2. Small midline postop seroma behind the L3 spinous process surrounded by enhancing postoperative fibrosis. There is enhancing postoperative fibrosis extends caudally behind the L5 spinous process. Electronically Signed: Shree Guevara MD at 15:23 EDT , Service support ,
== END ==
PROVIDERS: PCP Family Medicine; Referring Provider Orthopaedic Surgery; Visit Provider Orthopaedic Surgery
DX: M51.26 Other intervertebral disc displacement, lumbar region (principal); Z98.890 Other specified postprocedural states
CPT/HCPCS: 72158; A9575

== ENCOUNTER 2020-09-03 05:09 | Inpatient (IN) | payer MEDICAID, SELFPAY ==
[2020-07-09 09:34] VITALS: BMI 35.1
[2020-08-28 12:36] LABS: Absolute Lymphocyte Count 3.61 X10^3/uL (0.83-4.51); Absolute Neutrophil Count 9.1 X10^3/uL (2.0-7.7); Basophil# 0.07 X10^3/uL; Basophil% 0.5 % (0-1); Eosinophil# 0.17 X10^3/uL; Eosinophils% 1.2 % (0-5); Hematocrit 49.7 % (40-54); Hemoglobin 16.3 g/dL (13.0-16.5); Lymphocyte # 3.61 X10^3/ul (0.83-4.51); Lymphocyte % 26.2 % (19-41); Mean Corp Hgb Conc 32.8 g/dL (32-36); Mean Corpuscular Hgb 27.8 pg (27.0-32.0); Mean Corpuscular Volume 84.7 fL (80-94); Mean Platelet Vol. 10.1 fl (6.2-12.0); Monocyte# 0.79 X10^3/uL; Monocyte% 5.7 % (0-10); NRBC Flagged by Analyzer 0 % (0-5); Neutrophil % 66.2 % (47-70); Platelet Count 290 K/mm3 (150-450); RBC Distribution Width CV 13.7 % (11.6-14.6); RBC Distribution Width SD 42.7 fl (35.1-43.9); Red Blood Count 5.87 M/mm3 (4.6-6.2); White Blood Count 13.8 K/mm3 (4.4-11.0)
[2020-08-28 12:57] LABS: Magnesium 2.3 mg/dL (1.6-2.6)
[2020-08-28 12:58] LABS: Anion Gap 7 (5-15); BUN 15 mg/dL (7-18); BUN/Creat Ratio 17.2 RATIO (10-20); Calcium,Total 9.2 mg/dL (8.5-10.1); Chloride 105 mmol/L (98-107); Creatinine, Serum 0.87 mg/dL (0.70-1.30); EST Glomerular Filtration Rate 104 mL/min (>60); Est Glom Filt Rate - Afr Amer 126 mL/min (>60); Glucose 152 mg/dL (74-106); Potassium 4.2 mmol/L (3.5-5.1); Sodium Level 134 mmol/L (136-145)
[2020-08-28 13:29] LABS: HIV - WCH Non-Reactive (Nonreactive)
[2020-08-28 15:24] LABS: Hemoglobin A1c 7.8 % (3.8-5.6)
[2020-08-29 05:07] LABS: HEPATITIS B SURFACE AG Negative (Negative); Hepatitis A AB, Total Negative (Negative); Hepatitis A IgM Antibody Negative (Negative); Hepatitis B Core AB IgM Negative (Negative); Hepatitis B Core Ab Total Negative (Negative); Hepatitis C Ab <0.1 s/co ratio (0.0-0.9)
[2020-08-29 13:27] LABS: Hep B Surface Antibodies Non Reactive (.)
[2020-09-02 13:42] VITALS: BMI 35.1
[2020-09-03] VITALS (13 sets, daily range): BP systolic 114–164; BP diastolic 70–96; PULSE 96–112; RESP 14–18; TEMP 36.6–37.4; O2SAT 92–99; BMI 34.4
--- NOTE | 2020-09-03 | DISC_PTH ---
PATIENT: KALEY MASSEY LOC: [facility] U#:[id number] AGE/SX: 39/M ROOM: IA318 RE09/03/[address]: Dr. Anderson Celaya DO : 1980 BED: 1 DIS: 09/07/2020 SPEC #: [id number] RECD: 09/04/20 07:21 STATUS: JAVI REChava #: [id number] RUPERT: 09/03/20 00:[address]: Anderson Celaya DEPT: SURGICAL PATHOLOGY RECD BY: Damián Ceballos ENTERED: 09/04/20 09:03 SP TYPE: DISC OTHR DR: MD Dr. Jeremiah Alvarado MD Tissues: Intervertebral disc, NOS Procedures: Surgery Specimen Level III HEADER OPERATION: ERAS, 360 fusion L3-L4 with repeat decompression PRE-OP DIAGNOSIS: Herniation at L3-L4 on right side TISSUE SUBMITTED: Disc MICROSCOPIC DIAGNOSIS Intervertebral disc, L3-L4, discectomy: Fragments of intervertebral disc with degenerative change. AM:logan 09/05/2020 MICROSCOPIC DESCRIPTION Slides are reviewed. GROSS DESCRIPTION Received in fixative is one container labeled with the patient's name and designated disc. The specimen consists of multiple irregular and indurated fragments of pink-white soft tissue that in aggregate measure 6 x 6 x 2 cm. Bowling Ball Finisher sections are submitted in two cassettes. / AM:logan 09/04/20 TC:5 CPT: 68668
[2020-09-03] MEDS: Acetaminophen 500 MG Tablet 1000 MG PO ×2 (06:04→19:04)
[2020-09-03] MEDS: Insulin Lispro 100 UNIT/ML INSULN.PEN SC ×3 (06:20→22:13)
[2020-09-03 06:30] LABS: Bedside Glucose 246 mg/dL (70-110)
[2020-09-03] MEDS: Lactated Ringers 1,000 ML 100 ML IV ×4 (07:03→17:30)
--- NOTE | 2020-09-03 07:30 | RAD_ITS ---
STUDY: X-RAY - LUMBAR SPINE REASON FOR EXAM: Male, 39 years old. 360 FUSION L3-L4 WITH REPEAT DECOMPRESSION TECHNIQUE: 1 view(s) of the lumbar spine were obtained. COMPARISON: None FINDINGS: A metallic localization instrument is seen. The tip is along the anterior aspect of the L2-L3 level. RAD/Spine 1 View Any Level IMPRESSION: The localization instrument is seen along the anterior aspect of the L2-L3 disc space level. Electronically Signed: Sourav Kennedy MD at 10:32 EDT , Service support ,
[2020-09-03] MEDS: Heparin 10,000 UNITS/10 ML Vial 10000 UNITS (08:54)
--- NOTE | 2020-09-03 09:11 | HP.PCM_ITS ---
History and Physical Date of Admission: 09/03/20 Assessment and Plan Plan Details Additional Comments: Procedures: #1 anterior lumbar interbody fusion L3-4 CPT code 27450 #2 application of spine plate L3-4 CPT code #78207/59 this plate is not part of cage insertion hence modifier 59 #3 insertion of anterior cage L3-4 CPT code #43865 #4 posterior fusion CPT code 92789 #5 repeat laminectomy L3-4 CPT code 76333 #6 nonsegmental internal fixation L3-4 Intake Intake Visit Reasons: Amb Documentation Chief Complaint: lamenectomy Allergies meperidine [From Demerol] Adverse Reaction (Severe, Verified 08/20/20 10:42) hallucinaions PFSH Medical History (Updated 08/21/20 @ 10:25 by Donna Atwood) Alcohol use Ambulates with cane Anxiety Arthritis Back pain Depression Diabetes mellitus High cholesterol History of pain when walking HTN (hypertension) Restless legs Smoker Wears dentures Wears partial dentures Surgical History (Updated 08/21/20 @ 10:25 by Donna Atwood) Hx of Achilles tendon repair Hx of arthroscopy of left knee Hx of laminectomy (~05/09/20) Family History (Updated 04/10/20 @ 10:09 by Emily Brock) Father Hypertension Heart disease Social History (Updated 06/21/20 @ 11:[address] Anderson Celaya, ) Smoking Status: Current every day smoker tobacco type: cigarettes Tobacco: How many years used: 18 alcohol intake: current alcohol intake frequency: holidays/special occasions only HPI Amb Documentation Details: This is history and physical on patient Jonathan Salazar. This should be dated August 28, 2020. Chief complaint: Severe pain in his back that radiates around the right side to the anterior right thigh. History of chief complaint: Patient had a laminectomy earlier this year at the L3-4 and L4-5 levels on the right side. The surgery was performed by me. He did very well until recently when he began having severe pain the right side of his low back that radiated to the right anterior thigh. An MRI scan was ordered with contrast that demonstrated a new herniation at L3-4 on the right side. Of course accounts for all his L4 symptoms. Allergies: Patient is allergic to Demerol. Current medications include bupropion 300 mg daily, Jardiance 25 mg p.o. daily glimepiride 4 mg p.o. daily, hydrocodone 10, lisinopril 5 mg p.o. daily. Past medical history: Is already documented above. Past surgical history: Is already documented above. Family history: Is positive for heart disease and hypertension. Social history: He is a current everyday smoker of cigarettes he only drinks occasionally. Review of systems: See below Physical examination: Examination of the head reveals he is normocephalic there are no lesions noted. Examination of the eyes reveals that the pupils are equal equally reactive light and accommodation extraocular muscles appear intact. Examination of the ears reveals no abnormalities with a normal tympanic membrane. Examination of the throat reveals no abnormalities there is no lymphadenopathy trachea is midline and movable there are no masses palpated Examination of the chest reveals that he has no adventitious sounds there is no rales or rhonchi and he has good movement of air in all wright Examination of the heart reveals a normal rate and rhythm with no murmurs. Examination of the abdomen reveals it is soft and nontender there is no organomegaly and there are no masses palpated. Musculoskeletal exam demonstrates that he has some weakness of the quads on the right side with decreased reflex of the quads on the right and a lot of pain with either flexion or extension of his lumbar sp ine. Neuro exam demonstrates the cranial nerves II through XII are grossly intact the patient is alert and well oriented x3. ROS Const All systems reviewed & are unremarkable except as noted in H Eyes Reports system reviewed and no additional complaints, except as documented ENT Reports system reviewed and no additional complaints, except as documented Card Reports system reviewed and no additional complaints, except as documented Resp Reports system reviewed and no additional complaints, except as documented GI Reports system reviewed and no additional complaints, except as documented Reports system reviewed and no additional complaints, except as documented Musc Reports back pain and Reports radiating pain into limb Skin/Breast Reports system reviewed and no additional complaints, except as documented Neuro Yes system reviewed and no additional complaints, except as documented Psych Reports anxiety and Reports depression Endo Reports system reviewed and no additional complaints, except as documented Matt/Lymph Reports system reviewed and no additional complaints, except as documented Aller/Immun Reports system reviewed and no additional complaints, except as documente
[2020-09-03] MEDS: THROMBIN (RECOMBINANT) 20,000 UNIT VIAL 20000 UNIT TOPICAL (10:29)
[2020-09-03 10:50] LABS: Bedside Glucose 236 mg/dL (70-110)
--- NOTE | 2020-09-03 11:00 | RAD_ITS ---
STUDY: X-RAY - LUMBAR SPINE REASON FOR EXAM: Male, 39 years old. 360 FUSION L3-L4 WITH REPEAT DECOMPRESSION TECHNIQUE: 1 view(s) of the lumbar spine were obtained. COMPARISON: Comparison is made with prior study done earlier in the day. FINDINGS: The patient is status post anterior fusion at the L3-L4 level with a prosthetic disc placement. RAD/Spine 1 View Any Level IMPRESSION: Status post anterior fusion at the L3-L4 level with prosthetic disc placement. Electronically Signed: Sourav Kennedy MD at 11:23 EDT , Service support ,
--- NOTE | 2020-09-03 11:13 | RAD_ITS ---
STUDY: X-RAY - LUMBAR SPINE REASON FOR EXAM: Male, 39 years old. 360 FUSION L3-L4 WITH REPEAT DECOMPRESSION TECHNIQUE: 1 view(s) of the lumbar spine were obtained. COMPARISON: Comparison is made with prior study done earlier today. FINDINGS: The patient is status post anterior fusion at the L3-L4 level with prosthetic disc placement. A posterior localization marker is seen. It lies along the posterior aspect of the L3-L4 disc space level. RAD/Spine 1 View Any Level IMPRESSION: Status post anterior fusion at the L3-L4 level with disc prosthesis. The localization instrument is seen overlying the posterior aspect of the L3-L4 disc space level. Electronically Signed: Sourav Kennedy MD at 13:57 EDT , Service support ,
--- NOTE | 2020-09-03 11:23 | PCM.OPRPT ---
Problems Associated Problem List Diagnoses (1) Herniated nucleus pulposus, L3-4: Report of Operation Date of Procedure: 09/03/20 Pre-Operative Diagnosis: Degenerative disc disease Post-Operative Diagnosis: Same Surgery/Procedure Performed:: 1 anterior lumbar interbody fusion L3-L4. 2. Placement of plate over the cage with 2 screws into L3 and 2 into L4. Type of Anesthesia: General Description of Procedure: Surgeon: Dr. Celaya co-surgeon: Dr. Vicente Polo Operation: Patient brought to the operating room. Underwent general anesthesia. Given appropriate antibiotics. Proper lead undergone the appropriate timeout consent. He was then prepped and draped in a sterile fashion. We did an incision just below the umbilicus and out lateral to the left lower quadrant. We dissected down onto the fascia and excised the anterior fascia. We freed this up all the way to the midline and then out lateral into the obliques and freed up along the area of the obliques. We then raised the anterior fascia superior and inferiorly. We then got lateral to the rectus and into the retroperitoneal plane. We then freed up along this onto the iliopsoas. We put in the Omni retractor. We then dissected up onto the disc space. Multiple venous and are arterial branches were ligated between clips. We freed up and marked the disc space and actually was in the L2-L3 disc space. We then confirmed the appropriate of the L3-L4 disc space. Once we had proper exposure of this patient then underwent the discectomy. We dilated up and then put a 14 mm cage. Bone marrow aspirate was put inside of this. Plate was placed on top and 235 mm screws placed in the L3 to 35 mm screws placed into L4. We then confirmed with x-ray good position of the plate and cage and the disc base. We then put a film over the plate removed out the retractors with good hemostasis. We closed the fascia with running strata fix. And then 2-0 and 3-0 Vicryl layers above this. Monocryl Dermabond for the skin. Patient will then be flipped over and the posterior all dictated separately. I was present during the entire part of the anterior.
--- NOTE | 2020-09-03 11:39 | PCM.OPRPT ---
Report of Operation Date of Procedure: 09/03/20 Description of Surgical Findings:: Preoperative diagnosis: Recurrent disc herniation L3-4 on the right Postoperative diagnoses: The same The procedures: #1 anterior lumbar interbody fusion L3-4 CPT code 65697 #2 application of spine plate L3-4 CPT code 43544/59 #3 insertion of cage L3-4 CPT code 67299 Cosurgeons: Dr. Celaya and Dr. Polo Pensionholder Information Clerk: Silvio from surgery Anesthesia: General endotracheal anesthesia administered by [facility] Estimated blood loss: 100 cc Drains: None Complications: None Procedure: Patient was taken to the OR where he was placed in the supine position on the operating table he was then placed under general endotracheal anesthesia. A Sharif catheter was inserted. Neuro monitoring placed their leads and the patient. The abdomen was then prepped and draped in standard fashion. Actual approach is described in Dr. Polo's operative summary. This Dr. Polo identified the L34 space and confirmed it with x-ray I came in. Then cut the anterior L3-4 annulus with a 10 blade and removed the nucleus with 2 anterior rongeurs and bowl curettes and ring curettes. To get back all the way to near the posterior longitudinal ligament. I used a bur to bur the bottom of L3 on each side to make it level in order to fit a cage in. I removed all remaining cartilage off both endplates with curettes. We then did our trials we started with a small cage but decided that he could easily use a large cage which was 27 x 40 mm. He did trials and found that he needed the large cage 8 degrees and 14 mm high. I then used a both the 12 and 40 mm broach to broach the space and get good bleeding endplate thorough irrigation was carried out note that about 30 minutes earlier we obtained the patient's stem cells from his left ASIS. I did this by punching a small hole in the skin entering through that hole with the needle. We used a Jamshidi needle tamped it in place and then I obtained 60 cc of bone marrow aspirate. This was then handed off to the plant and maintenance technician in the room she the stem cells from the red cells plasma etc. Once these were collected and concentrated about 8 or 10 times she gave me those back. At that time we then soaked the DBM sponges in the patient's stem cells. I then filled the 14 mm cage with 3 of the sponges I used 1-1/2 on each side of the cage. Again these were soaked with stem cells. Thorough irrigation was carried out at 1 last time and then I tamped it into place and countersunk it 2 to 3 mm. Following this we used a 27 mm plate by off-center to the left. I elevated the anterior longitudinal ligament above and below the disc space with cautery. The small anterior spurs were removed with double-action rongeurs. The 27 mm plate was then applied held in place while Dr. Polo use the all to insert each of the 4 screws to into L3 and 2 into L4. Use a technique where he would all first then entered with a self-tapping screws at all 4 corners. We used 35 mm screws. Following this we put a amnionic membrane over the anterior portion of the plate to prevent its adhesion adhesion to vessels. The closure is then described in Dr. Polo's operative summary. The end of operative summary on the anterior portion of Jonathan Salazar's surgery. This is Dr. Celaya dictating.
[2020-09-03] MEDS: Thrombin 5,000 IU Kit (PSA) 5,000 IU Vial 5000 IU TOPICAL (13:46)
[2020-09-03 14:16] LABS: Bedside Glucose 223 mg/dL (70-110)
--- NOTE | 2020-09-03 15:08 | PCM.OPRPT ---
Report of Operation Date of Procedure: 09/03/20 Description of Surgical Findings:: Preoperative diagnosis: Recurrent disc herniation L3-4 on the right with instability L4 radiculopathy intractable low back pain Postoperative diagnoses: The same Procedures: #1 posterior fusion L3-4 CPT code 33879 #2 repeat laminectomy L3-4 on the right CPT code 72339 #3 nonsegmental fixation L3-4 CPT code 72438 Surgeon: Dr. Celaya assistant superintendent: Rocael BUSH Anesthesia: General endotracheal anesthesia administered by [facility] Estimated blood loss: 300 cc loss with 125 cc given back via the Cell Saver Drains: Medium Hemovac Complications: None Procedure: After the first surgery that was done anteriorly the patient was then moved onto the prone position on the Isaac frame. After proper positioning with care to protect bony prominences the genitalia the brachial plexus bilaterally the ulnar nerves the brachial plexus the back was prepped and draped in standard fashion. I then made a longitudinal incision centered over the old incision. I work from the right side. I then elevated the paravertebral muscles off the lamina of L4 and the lamina of L3. Noted we took an intraoperative x-ray with a marker to assure that we were indeed at the right level. It was a tedious process because of scar formation and the fact that he had 2 laminotomy holes in the back that at L3-4 and L4-5. Did identify the facet and lamina lateralward and started removing the soft tissues off of the lamina and off of the facet using cautery. In this fashion I was able to identify the edges of the laminotomy. I then used a sharp small angled curettes to start releasing the soft tissues and scar tissue off of the lamina and the laminotomy site. Once this was done I used Kerrison rongeurs of different sizes to enlarge the laminotomy site identify the nerve root thought to be L4 continued releasing the soft tissues from the scar tissue eventually being able to retract the dura and nerve root medialward note that we identified the disc level and the tear in the annulus. Course we were able to identify the cage on the other side through the tear in the annulus note that once the lateral recess was open all pressure was taken off the L4 nerve root note that we did not find any free fragment of disc as I am sure he was removed from the anterior portion and pulled in without being known that it did. We checked the foramen with the hockey-stick and in excess and checked medialward with a hockey-stick and there was no more disc there and the L4 nerve root was completely decompressed. Then opened the left side elevated the paravertebral muscles off the lamina for the lamina of L3 on the left side we then put the super slide in place thorough irrigation was carried out and would bring it begin the process of fusion we used the bur to bur the lamina of 4 and the lamina of 3 and and the facet in between. Once this was done we placed remaining stem cells soaked DBM across the gutter and covering the area. The internal fixation device was then applied once it was centered and locked into place the locking Hope mechanisms were activated. This gave us a excellent posterior construct. Place Gelfoam over the laminotomy site and began closure after putting in a medium Hemovac drain close lumbar fascia using [id number] suture with #1 Vicryl for closure of subcutaneous tissues with 0 Vicryl and 2-0 Vicryl in interrupted fashion and the skin was approximated using skin clips sterile dressings were then applied. Note that the drain was sewn in place. We then recovered him in the OR moved to his hospital bed and took him to recovery in satisfactory condition. This is the end of operative summary #2 on Jonathan Salazar. This is Dr. Celaya dictating.
[2020-09-03 15:55] LABS: Bedside Glucose 246 mg/dL (70-110)
--- NOTE | 2020-09-03 18:48 | PN.HOSP_ITS ---
Documented by User: Tiffanie Curry NP-C 09/03/20 19:03 Subjective Subjective Patient is a 39-year-old male who presented for anterior lumbar interbody fusion L3-L4 with Dr. Celaya. Patient is currently laying in bed and very drowsy however he is appropriate and able to answer questions. Patient states that currently his pain is well controlled. Patient gives a medical history including diabetes mellitus type 2 and hypertension. Objective Data Objective Data Vital Signs: Vital Signs Temp Pulse Resp BP Pulse Ox 98.8 F 108 H 16 140/81 H 99 09/03/20 17:22 09/03/20 17:22 09/03/20 17:22 09/03/20 17:22 09/03/20 17:22 Oxygen Flow Rate (L/min) 6 Oxygen Delivery Method Simple Mask Weight: 275 lb 12.772 oz Body Mass Index (BMI) 34.4 Intake & Output: Intake and Output for Last 24 Hours 09/01/20 09/02/20 09/03/20 23:59 23:59 23:59 Intake Total 3222.5 / 3222.5 Output Total 1110 / 1110 Balance 2112.5 / 2112.5 Lab / Micro Data Result Diagrams: 08/28/20 12:04 08/28/20 12:04 Labs: Laboratory Results - last 24 hr 09/03/20 09/03/20 09/03/20 05:50 10:43 14:10 POC Glucose 246 H 236 H 223 H 09/03/20 15:49 POC Glucose 246 H Micro: Microbiology 08/30/20 10:55 Interface Orders SARS-CoV-2 Antigen (Rapid) - Final 08/28/20 12:04 Swab (Method) Nasal Screen MRSA/MSSA - Final Radiography Diagnostic Testing: Radiology Impression Spine X-Ray 09/03/20 07:30 IMPRESSION: The localization instrument is seen along the anterior aspect of the L2-L3 disc space level. Electronically Signed: Sourav Kennedy MD at 10:32 EDT , Service support , Spine X-Ray 09/03/20 11:00 IMPRESSION: Status post anterior fusion at the L3-L4 level with prosthetic disc placement. Electronically Signed: Sourav Kennedy MD at 11:23 EDT , Service support , Spine X-Ray 09/03/20 11:13 IMPRESSION: Status post anterior fusion at the L3-L4 level with disc prosthesis. The localization instrument is seen overlying the posterior aspect of the L3-L4 disc space level. Electronically Signed: Sourav Kennedy MD at 13:57 EDT , Service support , Physical Exam Const oriented x3 and no apparent distress Orientation / Consciousness: other Other Details: Sleepy following anesthesia for surgery HEENT normocephalic and head/scalp atraumatic Eyes conjunctivae normal and no scleral icterus Neck supple and no JVD Lymph Lymphatic: no lymphadenopathy noted Chest inspection of chest normal Resp normal respiratory effort, normal air movement, no retractions, no use of accessory muscles and clear to auscultation bilaterally Cardio regular rate, regular rhythm, S1 normal heart sound and S2 normal heart sound GI normal to inspection, nondistended, normoactive bowel sounds, soft to palpation and non-tender Extremity normal to inspection, full ROM, normal capillary refill and no clubbing, cyanosis or edema Skin no rashes or lesions noted, no wounds and skin turgor normal Neuro oriented x3, moves all extremities, no focal motor deficits and no sensory deficits noted Psych mental status grossly normal, thought process normal, cooperative and affect normal Assessment & Plan Assessment/Plan (1) Herniated nucleus pulposus, L3-4: PLAN: 1. Anterior lumbar interbody fusion L3-L4 -Surgery complete 09/03/2020 -Pain management regimen per Dr. Celaya 2. Hypertension -Vital signs currently stable -Continue lisinopril 5 mg daily -Vital signs per protocol, trend BP and heart rate 3. Diabetes mellitus type 2 -Patient currently takes Jardiance and glimepiride at home, will hold Jardiance while inpatient -AC at bedtime blood sugars with sliding scale insulin ordered -Hypoglycemia protocol ordered 4. Anxiety and depression -Continue bupropion daily DVT prophylaxis-SCDs This patient was seen by Tiffanie Curry NP-C under the supervision of Dr. Reddy. Documented by User: Dr. Carlitos Reddy MD 09/03/20 20:23 Objective Data Lab / Micro Data Result Diagrams: 08/28/20 12:04 08/28/20 12:04 Charges/Coding Addendum Addendum: Dr. Reddy: I personally reviewed the chart and examined the patient, and agree with the above findings. 39-year-old male presents with a lumbar fusion. Consulted for medical management of his diabetes and hypertension. Can continue all of his h ypertensive medications, will hold his oral hypoglycemics and place him on a sliding scale insulin. We will continue to monitor peripherally. Visit Charges Inpatient E&M: 16867 Subs Hosp L3
[2020-09-03] MEDS: Famotidine 20 MG Tablet PO (19:04)
[2020-09-03] MEDS: buPROPion (XL) 300 MG TABLET.XL PO (19:04)
[2020-09-03] MEDS: Senna/Docusate Sodium 1 Tablet 2 TABLET PO (19:05)
[2020-09-03] MEDS: Ensure Surgery 237 ML LIQUID PO (19:14)
[2020-09-03] MEDS: Cefazolin 1 GM/50 ML BAG IV (22:01)
[2020-09-04] VITALS (7 sets, daily range): BP systolic 127–158; BP diastolic 74–91; PULSE 91–108; RESP 16–18; TEMP 36.5–37.1; O2SAT 92–99
[2020-09-04] MEDS: Lactated Ringers 1,000 ML 100 ML IV (00:07)
[2020-09-04 00:10] LABS: Bedside Glucose 232 mg/dL (70-110)
[2020-09-04] MEDS: oxyCODONE 5 MG Tablet PO ×4 (02:40→18:15)
[2020-09-04] MEDS: Morphine 4 MG/ML Syringe IV ×4 (03:54→21:41)
[2020-09-04] MEDS: Cefazolin 1 GM/50 ML BAG IV (05:36)
[2020-09-04] MEDS: Acetaminophen 500 MG Tablet 1000 MG PO ×3 (06:36→21:40)
[2020-09-04] MEDS: Insulin Lispro 100 UNIT/ML INSULN.PEN SC ×2 (06:40→12:23)
[2020-09-04 07:16] LABS: Bedside Glucose 194 mg/dL (70-110)
[2020-09-04] MEDS: Glimepiride 4 MG Tablet PO (09:13)
[2020-09-04] MEDS: Famotidine 20 MG Tablet PO ×2 (09:13→21:41)
[2020-09-04] MEDS: Lisinopril 5 MG Tablet PO (09:14)
[2020-09-04] MEDS: Senna/Docusate Sodium 1 Tablet 2 TABLET PO ×2 (09:14→21:42)
[2020-09-04] MEDS: buPROPion (XL) 300 MG TABLET.XL PO (09:14)
--- NOTE | 2020-09-04 09:55 | CASEMGMT ---
RN CM Face to Face with patient for initial transition planning/care coordination assessment. RN CM introduced self and role at [facility]. Patient lying in bed, alert and oriented. Patient willing to participate in assessment and is able to answer all questions appropriately. Care providers, pharmacy, and demographics verified. Patient wishes to discharge home, denies need for home health at this time. Patient states he has no further needs or concerns at this time. CM to follow for discharge planning needs that may arise. PCP: Deepti Specialists: [facility] Pharmacy: [facility] Insurance: [employer] Prescription Benefit: yes Living Will/HPOA: none LNOK: Living Arrangements: Patient lives with in a 2 story home with bath on first floor. Patient states he was independent and able to ambulate stairs prior to surgery. Transportation: self/ DME/HHC: Patient states he has BSC, cane, walker, and rollator at home. Patient denies previous HHC or SNF Disposition Plan: Patient to discharge home with family support and follow-up plans in place. Gunjan GRAY, RN, CM
--- NOTE | 2020-09-04 10:47 | PCM.PROGNOTE ---
Subjective Subjective Patient is doing well. Resting in bed comfortably. Status post L3-L4 08/02/1958 fusion. Some mild discomfort in his back and abdomen. He is already been out of bed twice and doing well Objective Data Objective Data Vital Signs: Vital Signs Temp Pulse Resp BP Pulse Ox 98.2 F 102 H 18 139/86 H 92 09/04/20 09:05 09/04/20 09:05 09/04/20 09:05 09/04/20 09:05 09/04/20 09:05 Oxygen Flow Rate (L/min) 1 Oxygen Delivery Method Room Air Weight: 275 lb 12.772 oz Body Mass Index (BMI) 34.4 Intake & Output: Intake and Output for Last 24 Hours 09/02/20 09/03/20 09/04/20 23:59 23:59 23:59 Intake Total 4124.17 / 4124.17 738.25 / 738.25 Output Total 2150 / 2150 1700 / 1700 Balance 1974.17 / 1974.17 -961.75 / -961.75 Lab / Micro Data Result Diagrams: 08/28/20 12:04 08/28/20 12:04 Labs: Laboratory Results - last 24 hr 09/03/20 09/03/20 09/03/20 10:43 14:10 15:49 POC Glucose 236 H 223 H 246 H 09/03/20 09/04/20 21:59 06:39 POC Glucose 232 H 194 H Micro: Microbiology 08/30/20 10:55 Interface Orders SARS-CoV-2 Antigen (Rapid) - Final 08/28/20 12:04 Swab (Method) Nasal Screen MRSA/MSSA - Final Radiography Diagnostic Testing: Radiology Impression Spine X-Ray 09/03/20 11:00 IMPRESSION: Status post anterior fusion at the L3-L4 level with prosthetic disc placement. Electronically Signed: Sourav Kennedy MD at 11:23 EDT , Service support , Spine X-Ray 09/03/20 11:13 IMPRESSION: Status post anterior fusion at the L3-L4 level with disc prosthesis. The localization instrument is seen overlying the posterior aspect of the L3-L4 disc space level. Electronically Signed: Sourav Kennedy MD at 13:57 EDT , Service support , Physical Exam Narrative Patient is awake alert oriented Mild discomfort abdomen and back Afebrile vital signs stable Palpable pedal pulse Mild discomfort left lower quadrant Assessment & Plan Assessment/Plan (1) Herniated nucleus pulposus, L3-4: PLAN: Patient doing well status post L3-L4 360 fusion. Continue to increase activity as tolerated.
[2020-09-04 11:40] LABS: Bedside Glucose 182 mg/dL (70-110)
--- NOTE | 2020-09-04 12:15 | PCM.PN.ORT ---
Objective Data Objective Data Vital Signs: Vital Signs Temp Pulse Resp BP Pulse Ox 98.2 F 102 H 18 139/86 H 92 09/04/20 09:05 09/04/20 09:05 09/04/20 09:05 09/04/20 09:05 09/04/20 09:05 Oxygen Flow Rate (L/min) 1 Oxygen Delivery Method Room Air Weight: 275 lb 12.772 oz Body Mass Index (BMI) 34.4 Intake & Output: Intake and Output for Last 24 Hours 09/02/20 09/03/20 09/04/20 23:59 23:59 23:59 Intake Total 4124.17 / 4124.17 738.25 / 738.25 Output Total 2150 / 2150 1700 / 1700 Balance 1974.17 / 1973.17 -961.75 / -961.75 Lab / Micro Data Result Diagrams: 08/28/20 12:04 08/28/20 12:04 Labs: Laboratory Results - last 24 hr 09/03/20 09/03/20 09/03/20 14:10 15:49 21:59 POC Glucose 223 H 246 H 232 H 09/04/20 09/04/20 06:39 11:35 POC Glucose 194 H 182 H Micro: Microbiology 08/30/20 10:55 Interface Orders SARS-CoV-2 Antigen (Rapid) - Final 08/28/20 12:04 Swab (Method) Nasal Screen MRSA/MSSA - Final Radiography Diagnostic Testing: Radiology Impression Spine X-Ray 09/03/20 11:13 IMPRESSION: Status post anterior fusion at the L3-L4 level with disc prosthesis. The localization instrument is seen overlying the posterior aspect of the L3-L4 disc space level. Electronically Signed: Sourav Kennedy MD at 13:57 EDT , Service support , Procedure Criteria Elective Risks - COVID COVID Risk Discussion: Postop day #1. The patient is complaining of abdominal pain around the incision site. He states that he is abdomen hurts significantly more than his low back. His right thigh pain is completely resolved. Neurologically he is intact in both lower extremities. Dressings are both dry. The drain will be left in 1 more day as he has had significant drainage. Progress is satisfactory.
[2020-09-04] MEDS: 0.9% Saline Lock 10 ML Syringe IV ×2 (12:20→16:52)
[2020-09-04] MEDS: diazePAM 5 MG Tablet PO (14:07)
[2020-09-04 16:45] LABS: Bedside Glucose 142 mg/dL (70-110)
[2020-09-04 22:20] LABS: Bedside Glucose 131 mg/dL (70-110)
[2020-09-05] MEDS: 0.9% Saline Lock 10 ML Syringe IV ×6 (01:55→21:31)
[2020-09-05] MEDS: Morphine 4 MG/ML Syringe IV ×5 (01:55→17:25)
[2020-09-05 02:05] VITALS: BP 149/86; PULSE 107; RESP 17; TEMP 36.8; O2SAT 93
[2020-09-05] MEDS: Acetaminophen 500 MG Tablet 1000 MG PO ×3 (06:12→20:38)
[2020-09-05] MEDS: Insulin Lispro 100 UNIT/ML INSULN.PEN SC (06:15)
[2020-09-05 06:26] LABS: Bedside Glucose 170 mg/dL (70-110)
[2020-09-05 07:46] VITALS: BP 141/86; PULSE 106; RESP 18; TEMP 36.7; O2SAT 92
[2020-09-05] MEDS: oxyCODONE 5 MG Tablet PO ×3 (07:57→20:35)
[2020-09-05] MEDS: Glimepiride 4 MG Tablet PO (09:40)
[2020-09-05] MEDS: Lisinopril 5 MG Tablet PO (09:40)
[2020-09-05] MEDS: Famotidine 20 MG Tablet PO ×2 (09:40→20:38)
[2020-09-05] MEDS: buPROPion (XL) 300 MG TABLET.XL PO (09:40)
[2020-09-05] MEDS: Senna/Docusate Sodium 1 Tablet 2 TABLET PO ×2 (09:42→20:39)
[2020-09-05] MEDS: diazePAM 5 MG Tablet PO (09:46)
[2020-09-05 10:52] VITALS: O2SAT 90
[2020-09-05 11:15] LABS: Bedside Glucose 146 mg/dL (70-110)
[2020-09-05 12:07] VITALS: BP 173/94; PULSE 115; RESP 18; TEMP 36.3; O2SAT 96
--- NOTE | 2020-09-05 14:29 | PN.ORTHO_ITS ---
Objective Data Objective Data Vital Signs: Vital Signs Temp Pulse Resp BP Pulse Ox 97.4 F L 115 H 18 173/94 H 96 09/05/20 12:07 09/05/20 12:07 09/05/20 12:09/05/20 12:07 09/05/20 12:07 Oxygen Flow Rate (L/min) 1 Oxygen Delivery Method Room Air Weight: 275 lb 12.772 oz Body Mass Index (BMI) 34.4 Intake & Output: Intake and Output for Last 24 Hours 09/03/20 09/04/20 09/05/20 23:59 23:59 23:59 Intake Total 4124.17 / 4124.17 2378.25 / 2378.25 1200 / 1200 Output Total 2150 / 2150 3370 / 3370 1050 / 1050 Balance 1974.17 / 1973.17 -991.75 / -991.75 150 / 150 Lab / Micro Data Result Diagrams: 08/28/20 12:04 08/28/20 12:04 Labs: Laboratory Results - last 24 hr 09/04/20 09/04/20 09/05/20 16:41 22:16 06:14 POC Glucose 142 H 131 H 170 H 09/05/20 11:07 POC Glucose 146 H Micro: Microbiology 08/30/20 10:55 Interface Orders SARS-CoV-2 Antigen (Rapid) - Final 08/28/20 12:04 Swab (Method) Nasal Screen MRSA/MSSA - Final Procedure Criteria Elective Risks - COVID COVID Risk Discussion: Postop day #2. Patient is complaining of a lot of low back pain and abdominal pain of course. He states that he is not hungry which is not expected as hurts bowel sounds are hypo at this time. Is not have a f ull-fledged ileus however he is on the edge of 1. We will keep him on clear liquids for now. He seems to be having a lot of anxiety right now more than usual. He has long history of anxiety. Went ahead and started him on Ativan 2 mg every 8 hours as needed for his anxiety. And then his pulse was 115 again probably because of the anxiety. Blood pressure was a little elevated also. Likely his O2 sats are good. We change his dressing and pulled the drain as he has hardly any drainage anymore. Incision is dry and healing well. Neurologically he is intact in both lower extremities. It helps at the Ativan will help his anxiety. By his own admission this is a lot more than anxiety than usual.
[2020-09-05 14:31] VITALS: BP 152/94; PULSE 108; RESP 18; TEMP 37.2; O2SAT 92
--- NOTE | 2020-09-05 16:59 | PN.HOSP_ITS ---
Subjective Subjective Had significant anxiety reaction today, leading to tachycardia and hypertension. This is all stemming from his father's heart attack 10 years ago when his father suddenly in his arms all they are working on a car together, he does have some codependent tendencies. He initially was on BuSpar, and this was dis continued and replaced by Wellbutrin by his PCP and he is on 300 mg daily. I did discuss with him the addition of Zoloft to his regimen as well. His primary attending also added Ativan as needed. Objective Data Objective Data Vital Signs: Vital Signs Temp Pulse Resp BP Pulse Ox 99 F 108 H 18 152/94 H 92 09/05/20 14:31 09/05/20 14:31 09/05/20 14:31 09/05/20 14:31 09/05/20 14:31 Oxygen Flow Rate (L/min) 1 Oxygen Delivery Method Room Air Weight: 275 lb 12.772 oz Body Mass Index (BMI) 34.4 Intake & Output: Intake and Output for Last 24 Hours 09/04/20 09/05/20 09/06/20 03:59 03:59 03:59 Intake Total 4444.17 / 4444.17 2058.25 / 2058.25 1200 / 1200 Output Total 2150 / 2150 3370 / 3370 1050 / 1050 Balance 2294.17 / 2294.17 -1311.75 / -1311.75 150 / 150 Lab / Micro Data Result Diagrams: 08/28/20 12:04 08/28/20 12:04 Labs: Laboratory Results - last 24 hr 09/04/20 09/05/20 09/05/20 22:16 06:14 11:07 POC Glucose 131 H 170 H 146 H Micro: Microbiology 08/30/20 10:55 Interface Orders SARS-CoV-2 Antigen (Rapid) - Final 08/28/20 12:04 Swab (Method) Nasal Screen MRSA/MSSA - Final Physical Exam Const alert, oriented x3 and no apparent distress General Appearance: cooperative HEENT normocephalic and moist oral mucous membranes Head and Scalp: normocephalic Eyes PERRL, EOMs intact bilaterally and conjunctivae normal Neck supple and no JVD Resp normal respiratory effort, no retractions, no use of accessory muscles and clear to auscultation bilaterally Auscultation: Negative for crackles, rales, rhonchi or wheezes Cardio regular rate, regular rhythm, S1 normal heart sound, S2 normal heart sound and no murmurs GI soft to palpation, non-tender and non-distended; Negative for hepatosplenomegaly Extremity no clubbing, cyanosis or edema Skin no rashes or lesions noted Neuro no focal motor deficits and no sensory deficits noted Psych Mood & Affect: depressed and anxious Assessment & Plan Assessment/Plan (1) Herniated nucleus pulposus, L3-4: PLAN: 1. Anterior lumbar interbody fusion L3-L4 -Surgery complete 09/03/2020 -Pain management regimen per Dr. Celaya 2. Hypertension -Vital signs currently stable -Continue lisinopril 5 mg daily -Vital signs per protocol, trend BP and heart rate 3. Diabetes mellitus type 2 -Patient currently takes Jardiance and glimepiride at home, will hold Jardiance while inpatient -AC at bedtime blood sugars with sliding scale insulin ordered -Hypoglycemia protocol ordered 4. Anxiety and depression -Continue bupropion daily -Given the above discussion with the patient, will continue with Zoloft as well as the Ativan as needed for his anxiety. I anticipate that with appropriate treatment of his anxiety and his depression that his blood pressure and tachycardia will likely improve. This is also likely compounded by his pain from surgery. DVT: SCDs Charges/Coding Visit Charges Inpatient E&M: 61421 Subs Hosp L2
[2020-09-05 17:16] LABS: Bedside Glucose 112 mg/dL (70-110)
[2020-09-05] MEDS: Sertraline 50 MG Tablet PO (17:22)
[2020-09-05 20:31] VITALS: BP 153/84; PULSE 108; RESP 18; TEMP 36.4; O2SAT 95
--- NOTE | 2020-09-05 21:32 | NURSING ---
pt walked a full lap in the zhang with the quality assurance coach. per quality assurance coach pt tolerated well.
[2020-09-05 21:45] LABS: Bedside Glucose 141 mg/dL (70-110)
[2020-09-06] VITALS (8 sets, daily range): BP systolic 136–168; BP diastolic 84–107; PULSE 95–102; RESP 16–18; TEMP 36.4–36.7; O2SAT 92–97
[2020-09-06] MEDS: oxyCODONE 5 MG Tablet PO ×4 (02:17→18:15)
[2020-09-06] MEDS: hydrALAZINE 20 MG/ML Vial 5 MG IV (02:58)
[2020-09-06] MEDS: 0.9% Saline Lock 10 ML Syringe IV ×2 (02:58→21:11)
[2020-09-06] MEDS: Acetaminophen 500 MG Tablet 1000 MG PO ×3 (06:33→21:12)
[2020-09-06] MEDS: LORazepam 1 MG Tablet 2 MG PO ×2 (06:39→21:12)
[2020-09-06 07:00] LABS: Bedside Glucose 147 mg/dL (70-110)
[2020-09-06] MEDS: Glimepiride 4 MG Tablet PO (09:10)
[2020-09-06] MEDS: Lisinopril 5 MG Tablet PO (09:10)
[2020-09-06] MEDS: Sertraline 50 MG Tablet PO (09:10)
[2020-09-06] MEDS: buPROPion (XL) 300 MG TABLET.XL PO (09:10)
[2020-09-06] MEDS: Famotidine 20 MG Tablet PO ×2 (09:10→21:13)
[2020-09-06] MEDS: Senna/Docusate Sodium 1 Tablet 2 TABLET PO ×2 (10:17→21:13)
[2020-09-06] MEDS: Insulin Lispro 100 UNIT/ML INSULN.PEN SC (12:04)
[2020-09-06 12:10] LABS: Bedside Glucose 176 mg/dL (70-110)
--- NOTE | 2020-09-06 13:09 | PCM.PN.ORT ---
Objective Data Objective Data Vital Signs: Vital Signs Temp Pulse Resp BP Pulse Ox 98.0 F 99 16 153/99 H 94 09/06/20 09:05 09/06/20 09:05 09/06/20 09:05 09/06/20 09:05 09/06/20 09:05 Oxygen Flow Rate (L/min) 1 Oxygen Delivery Method Room Air Weight: 275 lb 12.772 oz Body Mass Index (BMI) 34.4 Intake & Output: Intake and Output for Last 24 Hours 09/04/20 09/05/20 09/06/20 23:59 23:59 23:59 Intake Total 2378.25 / 2378.25 2600 / 2600 1300 / 1300 Output Total 3370 / 3370 2377 / 2377 2250 / 2250 Balance -991.75 / -991.75 223 / 223 -950 / -950 Lab / Micro Data Result Diagrams: 08/28/20 12:04 08/28/20 12:04 Labs: Laboratory Results - last 24 hr 09/05/20 09/05/20 09/06/20 17:06 21:33 06:31 POC Glucose 112 H 141 H 147 H 09/06/20 12:03 POC Glucose 176 H Micro: Microbiology 08/30/20 10:55 Interface Orders SARS-CoV-2 Antigen (Rapid) - Final 08/28/20 12:04 Swab (Method) Nasal Screen MRSA/MSSA - Final Procedure Criteria Elective Risks - COVID COVID Risk Discussion: Postop day #3. Patient is doing much better today than yesterday. His anxiety is down significantly. Neurologically he is intact. Is actually been walking out in the zhang now on his own with his walker. Still has hyposounds in his abdomen thus we will keep him 1 more day. Likely however he has starting to have significant flatulence. Thus the partial ileus is resolving. We are planning on sending him home tomorrow morning.
[2020-09-06 17:10] LABS: Bedside Glucose 100 mg/dL (70-110)
[2020-09-06 21:36] LABS: Bedside Glucose 103 mg/dL (70-110)
[2020-09-07 03:40] VITALS: BP 156/92; PULSE 96; RESP 18; TEMP 36.5; O2SAT 97
[2020-09-07] MEDS: oxyCODONE 5 MG Tablet PO ×2 (03:41→12:07)
[2020-09-07] MEDS: Acetaminophen 500 MG Tablet 1000 MG PO (06:37)
[2020-09-07 06:46] LABS: Bedside Glucose 149 mg/dL (70-110)
[2020-09-07 07:20] VITALS: O2SAT 96
[2020-09-07 09:10] VITALS: BP 140/93; PULSE 88; RESP 18; TEMP 36.8; O2SAT 94
[2020-09-07] MEDS: Glimepiride 4 MG Tablet PO (09:19)
[2020-09-07 09:20] VITALS: PULSE 96
[2020-09-07] MEDS: Lisinopril 5 MG Tablet PO (09:20)
[2020-09-07] MEDS: Famotidine 20 MG Tablet PO (09:20)
[2020-09-07] MEDS: buPROPion (XL) 300 MG TABLET.XL PO (09:20)
[2020-09-07] MEDS: Senna/Docusate Sodium 1 Tablet 2 TABLET PO (09:20)
[2020-09-07] MEDS: Sertraline 50 MG Tablet PO (09:20)
[2020-09-07 12:05] LABS: Bedside Glucose 124 mg/dL (70-110)
--- NOTE | 2020-09-07 13:08 | PCM.DC ---
Discharge Instructions Follow Up Care Test Results: 07 September.Patient has been discharged todayTest results from this visit will be discussed in further detail at your follow-up appointment, if applicable. He has been given the following directions regarding his care. Tomorrow both the anterior and posterior dressing are to be removed and left open to the air. On Wednesday he may shower. His recovery will consist of ambulation and he has a walker at home for that purpose. He is to eat a soft diet for the next 2 or 3days and then advance to a full diet. He already has an appointment to see me back at the office. Discharge Plan Admission Admit Date/Time: 09/03/20 05:09 Primary Reason for Your Visit: surgery Attending Provider: Anderson Celaya Primary Care Provider: Jeremiah Tatum Consulting Providers: Carlitos Reddy Discharge Orders/Prescriptions Prescriptions: Continued Jardiance 25 mg tablet 25 mg PO DAILY RF: 0 naproxen 500 mg tablet 500 mg PO PRN PRN (Reason: Pain 1-10 Or Fever) RF: 0 glimepiride 2 mg tablet 4 mg PO DAILY RF: 0 lisinopril 5 mg tablet 5 mg PO DAILY RF: 0 hydrocodone-acetaminophen 10-325 mg tablet 1 tab PO Q4H PRN (Reason: pain) Qty: 60 RF: 0 bupropion HCl 300 MG tablet extended release 24 hr 300 mg PO DAILY RF: 0 Referrals / Follow Up: Jeremiah Tatum MD [Primary Care Provider] -
--- NOTE | 2020-09-07 13:12 | PCM.DC.SUM ---
Providers Date of Admission: 09/03/20 Primary Care Physician: Dr. Jeremiah Tatum MD Consultations 09/03/20 17:55 Consult: Hospitalist Routine Consulting Provider: Carlitos Reddy Reason for Consult: Medical Management EMERGENT Consult: No MD Notified: Yes Date Notified: 09/03/20 Time Notified: 18:30 Method of Notification: Text Reason For Visit: 360 FUSION L3-L4 WITH REPEAT DECOMPRESSION Diagnosis Discharge Diagnosis (1) Herniated nucleus pulposus, L3-4: Status: Acute Code(s): M51.26 - Other intervertebral disc displacement, lumbar region Plan: This patient was admitted on 2020. He is being discharged today 07 September. Lab data while in the hospital is already in the chart. Consultations while in the hospital he was seen by Dr. Ackerman for medical management. At discharge she has hardly any back pain whatsoever and his dressings are both dry. Neurologically he is intact. He has good bowel sounds now at discharge. He was given postop 360 fusion protocol regarding his activities. He is due to return to my office with an appointment that is already set. Medications at Discharge Home Medications empagliflozin 25 mg tablet 25 mg PO DAILY 04/10/20 glimepiride 2 mg tablet 4 mg PO DAILY 04/10/20 hydrocodone 10 mg-acetaminophen 325 mg tablet 1 tab PO Q4H PRN #60 tab 04/10/20 lisinopril 5 mg tablet 5 mg PO DAILY 04/10/20 naproxen 500 mg tablet 500 mg PO PRN PRN 04/10/20 bupropion HCl 300 mg PO DAILY 04/25/20 Weight / BMI Weight Weight: 275 lb 12.772 oz Body Mass Index (BMI) 34.4 ABG / Lab / Microbiology Data Result Diagrams: 08/28/20 12:04 08/28/20 12:04 Laboratory: Laboratory Results - last 24 hr 09/06/20 09/06/20 09/07/20 16:26 21:10 06:36 POC Glucose 100 103 149 H 09/07/20 12:00 POC Glucose 124 H Microbiology: Microbiology 08/30/20 10:55 Interface Orders SARS-CoV-2 Antigen (Rapid) - Final 08/28/20 12:04 Swab (Method) Nasal Screen MRSA/MSSA - Final Meaningful Use Info Meaningful Use Diagnoses (Choose all that apply): None applicable Discharge Plan Admission Admit Date/Time: 09/03/20 05:09 Primary Reason for Your Visit: surgery Attending Provider: Anderson Celaya Primary Care Provider: Jeremiah Tatum Consulting Providers: Carlitos Reddy Discharge Orders/Prescriptions Prescriptions: Continued Jardiance 25 mg tablet 25 mg PO DAILY RF: 0 naproxen 500 mg tablet 500 mg PO PRN PRN (Reason: Pain 1-10 Or Fever) RF: 0 glimepiride 2 mg tablet 4 mg PO DAILY RF: 0 lisinopril 5 mg tablet 5 mg PO DAILY RF: 0 hydrocodone-acetaminophen 10-325 mg tablet 1 tab PO Q4H PRN (Reason: pain) Qty: 60 RF: 0 bupropion HCl 300 MG tablet extended release 24 hr 300 mg PO DAILY RF: 0 Referrals / Follow Up: Jeremiah Tatum MD [Primary Care Provider] -
--- NOTE | 2020-09-07 13:54 | PCM.DC ---
Discharge Instructions Follow Up Care Test Results: Test results from this visit will be discussed in further detail at your follow-up appointment, if applicable. Discharge Plan Admission Admit Date/Time: 09/03/20 05:09 Primary Reason for Your Visit: surgery Attending Provider: Anderson Celaya Primary Care Provider: Jeremiah Tatum Consulting Providers: Carlitos Reddy Discharge Orders/Prescriptions Prescriptions: Continued Jardiance 25 mg tablet 25 mg PO DAILY RF: 0 naproxen 500 mg tablet 500 mg PO PRN PRN (Reason: Pain 1-10 Or Fever) RF: 0 glimepiride 2 mg tablet 4 mg PO DAILY RF: 0 lisinopril 5 mg tablet 5 mg PO DAILY RF: 0 hydrocodone-acetaminophen 10-325 mg tablet 1 tab PO Q4H PRN (Reason: pain) Qty: 60 RF: 0 bupropion HCl 300 MG tablet extended release 24 hr 300 mg PO DAILY RF: 0 Referrals / Follow Up: Jeremiah Tatum MD [Primary Care Provider] - Disposition Disposition (needs filled in before D/C Order can be placed): Home, Self Care
[2020-09-07 14:15] VITALS: BP 147/95; PULSE 94; RESP 16; TEMP 36.7; O2SAT 97
== END 2020-09-07 14:29 | disposition home or self-care (01) | DRG 304 ==
LOC: ACINP 05:10 → MS3 23:20
PROVIDERS: Anesthesiology; Admitting Provider Orthopaedic Surgery; PCP Family Medicine; Referring Provider Orthopaedic Surgery; Visit Provider Orthopaedic Surgery
PROC: 0SG00A0 Fusion of Lumbar Vertebral Joint with Interbody Fusion Device, Anterior Approach, Anterior Column, Open Approach (ICD-10-PCS; principal; 2020-09-03 07:00)
DX: M51.16 Intervertebral disc disorders with radiculopathy, lumbar region (principal); Z20.822 Contact with and (suspected) exposure to COVID-19; E11.9 Type 2 diabetes mellitus without complications; I10 Essential (primary) hypertension; E78.00 Pure hypercholesterolemia, unspecified; M19.90 Unspecified osteoarthritis, unspecified site; F32.9 Major depressive disorder, single episode, unspecified; F41.9 Anxiety disorder, unspecified; F17.210 Nicotine dependence, cigarettes, uncomplicated; Z79.84 Long term (current) use of oral hypoglycemic drugs; Z79.899 Other long term (current) drug therapy
CPT/HCPCS: 36415; 72020; 80048; 82962; 83036; 83735; 85025; 86703; 86704; 86705; 86706; 86708; 86709; 86803; 87081; 87340; 87426; 88304; 97110; 97162; 97530; 99251; 99406; C1713; C9803; J7120; A4216; G0463; J2405

== ENCOUNTER 2020-09-13 07:11 | Emergency (ER) | payer MEDICAID, SELFPAY ==
[2020-09-03 19:16] VITALS: BMI 34.4
[2020-09-13 07:12] VITALS: BP 157/103; PULSE 135; RESP 17; TEMP 35.8; O2SAT 95; BMI 33.1
--- NOTE | 2020-09-13 07:29 | EX.ED.GENINJ ---
HPI History of Present Illness Chief Complaint: Chest Other Narrative Narrative: Patient presenting with right lower rib pain. He states this started yesterday. Patient has not had a cough, fever, chills, nausea, vomiting. He denies radiation of the pain. Patient states that last week he had back surgery and fusion of L3-L4 with an anterior and posterior approach. He states he did not have any pain prior to yesterday however. Patient denies any abdominal pain. He has not had any problems with his surgical ivonne and they have not dehisced, been weeping, or had any redness or swelling. [facility] Medical History Alcohol use Ambulates with cane Anxiety Arthritis Back pain Depression Diabetes mellitus High cholesterol History of pain when walking HTN (hypertension) Restless legs Smoker Wears dentures Wears partial dentures Home Medications empagliflozin 25 mg tablet 25 mg PO DAILY 04/10/20 [History Last Taken 05/08/20] glimepiride 2 mg tablet 4 mg PO DAILY 04/10/20 [History Last Taken 05/08/20] hydrocodone 10 mg-acetaminophen 325 mg tablet 1 tab PO Q4H PRN #60 tab 04/10/20 [Rx Last Taken Unknown] lisinopril 5 mg tablet 5 mg PO DAILY 04/10/20 [History Last Taken 09/03/20 02:30] naproxen 500 mg tablet 500 mg PO PRN PRN 04/10/20 [History Last Taken 05/08/20] bupropion HCl 300 mg PO DAILY 04/25/20 [History Last Taken 05/08/20] doxycycline hyclate 100 mg PO BID #14 cap 09/13/20 [Rx Last Taken Unknown] Allergy/AdvReac Type Severity Reaction Status Date / Time meperidine [From Demerol] AdvReac Severe hallucinaio Verified 09/13/20 07:11 ns Family History Father Hypertension Heart disease Surgical History Hx of Achilles tendon repair Hx of arthroscopy of left knee Hx of laminectomy (~05/09/20) Social History Smoking Status: Current every day smoker tobacco type: cigarettes Tobacco: How many years used: 18 alcohol intake: current alcohol intake frequency: holidays/special occasions only ROS ROS ED Constitutional Constitutional ED: Denies chills, fever(s) or sweats Eyes Eyes: Denies blurry vision or change in vision ENT ENT ED: Denies rhinorrhea or sore throat Cardiovascular Cardiovascular: Denies palpitations or racing heartbeat Respiratory/Chest Respiratory/Chest: Reports other Details: Right lower rib pain Gastrointestinal Gastrointestinal: Denies abdominal pain, nausea or vomiting Genitourinary Genitourinary ED: Denies dysuria or hematuria Musculoskeletal Musculoskeletal: Denies arthralgias or myalgias Integumentary Denies abscess or rash Neurologic Neurologic: Denies headache(s) or paresthesias EXAM Physical Exam Const Vital Signs: 09/13/20 07:12 09/13/20 07:25 09/13/20 08:27 Temperature 96.5 F L Temperature Source Temporal Pulse Rate 135 H 118 H Respiratory Rate 17 14 Respiratory Effort Normal Non-Labored Blood Pressure 157/103 H 149/89 H Blood Pressure Mean 121 109 Pulse Ox 95 94 Oxygen Delivery Method Room Air Room Air 09/13/20 10:54 09/13/20 11:41 Temperature Temperature Source Pulse Rate 98 108 H Respiratory Rate 18 17 Respiratory Effort Blood Pressure 127/82 H 133/81 H Blood Pressure Mean 97 Pulse Ox 94 95 Oxygen Delivery Method Room Air Positive well nourished General Appearance ED: NAD HEENT Reports normocephalic and moist mucous membranes atraumatic Eyes PERRL and EOMs intact bilaterally Chest Wall Chest Narrative: Tenderness to palpation right lower ribs in the midaxillary line. No crepitance or deformity. Resp normal respiratory effort and clear to auscultation bilaterally Resp Narrative: Equal symmetric breath sounds and chest wall rise. Cardio regular rhythm Rate: regular rate Back/Spine normal to inspection Extremity normal to inspection and full ROM Neuro oriented x3 Sensorium / Orientation: alert Psych mental status grossly normal Skin no rashes or lesions noted Skin Narrative: [place] on the anterior lower abdomen clean dry and intact. [place] on the lumbar spine clean dry and intact. MDM MDM MDM Narrative Medical decision making narrative: 39-year-old male presenting with right rib pain. This started yesterday. He denies a cough or a fever. Patient had recent surgery on his lumbar spine and has been taking hydrocodone 10 mg at home. I initially obtained a right rib series which on my interpretation did not show any rib fractures or infiltrate in the right lung. Patient after medication was still persistently tachycardic and given his recent surgery I did feel I needed to rule out PE. At this point I obtained lab work and his white blood cell count is 20.3. Hemoglobin hematocrit are stable. Platelets are normal. Renal function and electrolytes are normal. Troponin is less than 3. CTA of the chest was performed and does identify a right lower lobe pneumonia. I discussed this with Dr. Morley who is on-call for Dr. Tatum. He recommended patient the patient on doxycycline. Patient already has pain medication at home. He is scheduled for follow-up in [address] Tatum. He is given return precautions. Impression: 1. Right lower lobe pneumonia Lab Data Attestation: I reviewed the patient's lab results. Labs: Laboratory Results - last 24 hr 09/13/20 09/13/20 09:08 09:08 WBC 20.3 H RBC 5.38 Hgb 14.8 Hct 46.6 MCV 86.6 MCH 27.5 MCHC 31.8 L RDW Std Deviation 43.0 RDW Coeff of Gilda 13.5 Plt Count 467 H MPV 10.0 Immature Gran % (Auto) 0.600 Neut % (Auto) 77.7 H Lymph % (Auto) 13.4 L [place] % (Auto) 7.3 Eos % (Auto) 0.7 Baso % (Auto) 0.3 Absolute Neuts (auto) 15.8 H Absolute Lymphs (auto) 2.72 Nucleated RBC % 0 Sodium 133 L Potassium 4.9 Chloride 100 Carbon Dioxide 23.0 Anion Gap 10 BUN 20 H Creatinine 0.83 Estim Creat Clear Calc 144.23 Est GFR (MDRD) Af Amer 132 Est GFR (MDRD) Non-Af 109 BUN/Creatinine Ratio 24.0 H Glucose 126 H Calcium 9.5 Troponin I High Sens < 3.0 L Radiography Diagnostic Testing: Radiology Impression Ribs w/Chest X-Ray 09/13/20 07:35 IMPRESSION: RIBS: No evidence for acute displaced right-sided rib fracture. CHEST: Scarring versus atelectasis at the right lung base. Electronically Signed: Josh Issa MD at 8:34 EDT Tel , Service support , Chest CTA 09/13/20 08:[address]: [address] evidence of pulmonary embolism. 2. Right lower lobe pneumonia. Electronically Signed: Sterling Elizalde MD at 10:26 EDT Tel , Service support , Discharge Plan Triage Chief Complaint: Chest Other ED Provider: Malcolm Iyer Dx/Rx/DC Orders Instructions: ED Pneumonia (Adult) Prescriptions: New doxycycline hyclate 100 mg capsule 100 mg PO BID Qty: 14 RF: 0 No Action Jardiance 25 mg tablet 25 mg PO DAILY RF: 0 naproxen 500 mg tablet 500 mg PO PRN PRN (Reason: Pain 1-10 Or Fever) RF: 0 glimepiride 2 mg tablet 4 mg PO DAILY RF: 0 lisinopril 5 mg tablet 5 mg PO DAILY RF: 0 hydrocodone-acetaminophen 10-325 mg tablet 1 tab PO Q4H PRN (Reason: pain) Qty: 60 RF: 0 bupropion HCl 300 MG tablet extended release 24 hr 300 mg PO DAILY RF: 0 Primary Care Provider: Jeremiah Tatum Referrals: Jeremiah Tatum MD [Primary Care Provider] - Disposition Disposition: Home, Self Care Discharge Date/Time: 09/13/20 12:02
--- NOTE | 2020-09-13 07:35 | RAD_ITS ---
STUDY: X-RAY - UNILATERAL RIBS ( RIGHT ) WITH CHEST REASON FOR EXAM: Male, 39 years old. rib pain TECHNIQUE - RIBS: 6 view(s) of the ribs. TECHNIQUE - CHEST: Single frontal PA view of the chest was obtained COMPARISON: None. FINDINGS - RIBS: There is no evidence for acute displaced right-sided rib fracture. FINDINGS - CHEST: Linear densities are noted at the right lung base suggestive of scarring versus atelectasis. There is no demonstrated pleural abnormality. Normal size heart. Normal mediastinum and scott. Normal visualized pulmonary arteries. Normal visualized aortic arch and descending thoracic aorta. Normal visualized thoracic spine. Normal visualized ribs, clavicles, and shoulders. There is no demonstrated abnormality of the visualized soft tissue structures of the upper abdomen. RAD/Ribs Uni Min 3V w/PA Chest IMPRESSION: RIBS: No evidence for acute displaced right-sided rib fracture. CHEST: Scarring versus atelectasis at the right lung base. Electronically Signed: Josh Issa MD at 8:34 EDT Tel , Service support ,
[2020-09-13] MEDS: Lidocaine 5% Patch 1 PATCH TOPICAL (07:42)
[2020-09-13] MEDS: oxyCODONE 5 MG Tablet PO (07:42)
[2020-09-13 08:27] VITALS: BP 149/89; PULSE 118; RESP 14; O2SAT 94
--- NOTE | 2020-09-13 08:49 | EKG12_ITS ---
Test Reason : RIGHT RIB PAIN Blood Pressure : / mmHG Vent. Rate : 121 BPM Atrial Rate : 121 BPM P-R Int : 142 ms QRS Dur : 100 ms QT Int : 328 ms P-R-T Axes : 050 051 041 degrees QTc Int : 465 ms Sinus tachycardia Otherwise normal ECG Confirmed by DERIK VENCES, ADAN ([id number]), material expeditor NICOLE RANDLE ([id number]) on 09/16/2020 9:52:21 AM Referred By: POWER Confirmed By:FÉLIX MORE MD
--- NOTE | 2020-09-13 08:49 | CT_ITS ---
STUDY: CTA CHEST REASON FOR EXAM: Male, 39 years old. chest pain RADIATION DOSAGE (If Supplied By Facility): CTDIvol = ( 19.79 ) mGy, DLP = ( 520.36 ) mGycm TECHNIQUE: The examination was performed with the intravenous administration of IV 100mL Isovue-300. Post-processing of the angiographic images was performed, with multiplanar reformation and 3D reconstruction. Individualized dose optimization techniques were used for this CT. COMPARISON: Chest x-ray earlier today FINDINGS: Moderate bilateral gynecomastia. Normal enhancement of the main pulmonary artery and right and left pulmonary arteries. Normal enhancement of the bilateral peripheral pulmonary arteries. There is no demonstrated pulmonary embolism. Normal thoracic aorta and visualized great vessels. There is no demonstrated aortic dissection. Normal heart and pericardium. Normal mediastinum. Normal hilar regions. Normal visualized trachea and bronchi. The lungs are well expanded. Alveolar density in the right lower lobe consistent with pneumonia. No noncalcified nodule or mass. Normal pleura. Normal chest wall structures. Normal osseous structures. Normal visualized upper abdomen. CT/CTA Chest W/WO Contrast IMPRESSION: 1. No CT evidence of pulmonary embolism. 2. Right lower lobe pneumonia. Electronically Signed: Sterling Elizalde MD at 10:26 EDT Tel , Service support ,
[2020-09-13] MEDS: Ondansetron 4 MG/2 ML Vial IV (09:13)
[2020-09-13] MEDS: Morphine 4 MG/ML Syringe IV ×2 (09:13→11:46)
[2020-09-13 09:17] LABS: Absolute Lymphocyte Count 2.72 X10^3/uL (0.83-4.51); Absolute Neutrophil Count 15.8 X10^3/uL (2.0-7.7); Basophil# 0.06 X10^3/uL; Basophil% 0.3 % (0-1); Eosinophil# 0.14 X10^3/uL; Eosinophils% 0.7 % (0-5); Hematocrit 46.6 % (40-54); Hemoglobin 14.8 g/dL (13.0-16.5); Lymphocyte # 2.72 X10^3/ul (0.83-4.51); Lymphocyte % 13.4 % (19-41); Mean Corp Hgb Conc 31.8 g/dL (32-36); Mean Corpuscular Hgb 27.5 pg (27.0-32.0); Mean Corpuscular Volume 86.6 fL (80-94); Monocyte# 1.48 X10^3/uL; Monocyte% 7.3 % (0-10); NRBC Flagged by Analyzer 0 % (0-5); Neutrophil # 15.82 X10^3/uL (2.7-7.7); Neutrophil % 77.7 % (47-70); Platelet Count 467 K/mm3 (150-450); RBC Distribution Width CV 13.5 % (11.6-14.6); Red Blood Count 5.38 M/mm3 (4.6-6.2); White Blood Count 20.3 K/mm3 (4.4-11.0)
[2020-09-13 09:35] LABS: Anion Gap 10 (5-15); BUN 20 mg/dL (7-18); Calcium,Total 9.5 mg/dL (8.5-10.1); Chloride 100 mmol/L (98-107); Creatinine, Serum 0.83 mg/dL (0.70-1.30); EST Glomerular Filtration Rate 109 mL/min (>60); Est Glom Filt Rate - Afr Amer 132 mL/min (>60); Estimated Creatinine Clearance 144.23 ml/min; Glucose 126 mg/dL (74-106); Potassium 4.9 mmol/L (3.5-5.1); Sodium Level 133 mmol/L (136-145); Troponin-I HS < 3.0 pg/mL (3.0-78.5)
[2020-09-13 10:54] VITALS: BP 127/82; PULSE 98; RESP 18; O2SAT 94
[2020-09-13 11:41] VITALS: BP 133/81; PULSE 108; RESP 17; O2SAT 95
[2020-09-13] MEDS: Doxycycline 100 MG CAPSULE PO (11:43)
== END 2020-09-13 12:02 | disposition home or self-care (01) ==
PROVIDERS: Emergency Provider Student in an Organized Health Care Education/Training Program; PCP Family Medicine
DX: J18.9 Pneumonia, unspecified organism (principal); E11.9 Type 2 diabetes mellitus without complications; I10 Essential (primary) hypertension; E78.00 Pure hypercholesterolemia, unspecified; M19.90 Unspecified osteoarthritis, unspecified site; F32.9 Major depressive disorder, single episode, unspecified; F41.9 Anxiety disorder, unspecified; F17.210 Nicotine dependence, cigarettes, uncomplicated; Z79.84 Long term (current) use of oral hypoglycemic drugs; Z79.1 Long term (current) use of non-steroidal anti-inflammatories (NSAID); Z79.899 Other long term (current) drug therapy
CPT/HCPCS: 71101; 71275; 80048; 84484; 85025; 93005; 96374; 96375; 96376; 99285; Q9967; A4216; J2405

== ENCOUNTER 2021-06-05 11:27 | Outpatient (CLI) | payer OTHER, MEDICAID, SELFPAY ==
[2021-06-05 15:30] LABS: Anion Gap 5 (5-15); BUN 14 mg/dL (7-18); BUN/Creat Ratio 16.7 RATIO (10-20); Calcium,Total 8.9 mg/dL (8.5-10.1); Chloride 105 mmol/L (98-107); Cholesterol 342 mg/dL (200); Creatinine, Serum 0.84 mg/dL (0.70-1.30); EST Glomerular Filtration Rate 108 mL/min (>60); Est Glom Filt Rate - Afr Amer 131 mL/min (>60); Glucose 194 mg/dL (74-106); High Density Lipoprotein 44 mg/dL; Sodium Level 136 mmol/L (136-145); Triglycerides 161 mg/dL; Very Low Density Lipoprotein 32 mg/dL (5-40)
[2021-06-05 16:47] LABS: Microalbumin:Creatinine Ratio 316.5 mg/g CRE (<30 mg/g CRE)
== END 2021-06-05 23:59 | disposition home or self-care (01) ==
LOC: MFPLAB 11:30
PROVIDERS: PCP Family Medicine; Referring Provider Family Medicine; Visit Provider Family Medicine
DX: E11.9 Type 2 diabetes mellitus without complications (principal)
CPT/HCPCS: 36415; 80048; 80061; 82043; 82570

== ENCOUNTER 2021-06-17 16:30 | Outpatient (CLI) | payer OTHER, MEDICAID, SELFPAY ==
--- NOTE | 2021-06-17 16:40 | CT_ITS ---
INDICATION: RT RENAL MASS EXAMINATION: CT ABDOMEN WITH IV CONTRAST CT Abdomen W/ Contrast Injection TECHNIQUE: Helically acquired images were obtained of the abdomen following IV contrast. A radiation dose optimization technique was used for this scan. IV Contrast dosage and agent: 100 mL of Isovue 300. Oral contrast: None. COMPARISON: None. FINDINGS: LOWER CHEST: 1.8 x 0.8 cm pleural-based soft tissue density visualized in the inferior lateral aspect of the right lower lobe most likely representing pleural reaction or residual consolidation, no suggestion of masses seen. No cardiomegaly or pericardial effusion. LIVER: Homogeneous. No focal mass. GALLBLADDER AND BILIARY TREE: No calcified gallstones. No gallbladder distension or wall edema. No intra- or extrahepatic biliary ductal dilation. PANCREAS: No focal cystic or solid mass. SPLEEN: Normal size without focal cystic or solid mass. ADRENAL GLANDS: No nodules. KIDNEYS AND URETERS: 3.3 x 2.4 x 3.6 cm ovoid solid mass visualized projecting of the medial aspect of the lower pole of the right kidney with scattered calcifications seen suggestive of for renal cell carcinoma. No evidence of mass effect or irregularity in the adjacent ureter. No evidence of other masses within the right kidney. No evidence of left kidney masses. No evidence of hydronephrosis or hydroureter. PERITONEUM: No ascites or free air. No other fluid collection. BOWEL: The appendix is unremarkable. No stomach or bowel distension. No focal inflammatory change. LYMPH NODES: No enlarged mesenteric or retroperitoneal lymph nodes. VESSELS: Aorta is non-dilated. ABDOMINAL WALL: No discrete abdominal wall hernia. BONES: Degenerative bone changes. Anterior internal fixation of the L3 and L4 vertebral bodies with intervertebral disc spacer visualized at L3-4 intervertebral disc space. No lytic or blastic abnormality. IMPRESSION: 3.6 cm mass visualized in the lower pole of the left kidney suggestive of renal cell cancer. Electronically Signed: Henri Machado MD at 8:31 EDT Reading Location ID and State: [facility] / [place] Tel , Service support , CT/Abdomen WITH IV Contrast
== END 2021-06-17 23:59 | disposition home or self-care (01) ==
PROVIDERS: PCP Family Medicine; Visit Provider Family Medicine
DX: N28.89 Other specified disorders of kidney and ureter (principal)
CPT/HCPCS: 74160; Q9967

== ENCOUNTER → 2021-09-08 | Outpatient (CLI) | payer OTHER, MEDICAID, SELFPAY ==
[2021-09-08 12:27] LABS: Cholesterol 118 mg/dL (200); High Density Lipoprotein 43 mg/dL; Triglycerides 202 mg/dL; Very Low Density Lipoprotein 40 mg/dL (5-40)
== END | disposition home or self-care (01) ==
LOC: MFPLAB 10:05
PROVIDERS: PCP Family Medicine; Visit Provider Family Medicine
DX: E11.9 Type 2 diabetes mellitus without complications (principal)
CPT/HCPCS: 36415; 80061

== ENCOUNTER → 2022-08-19 | Outpatient (CLI) | payer MEDICAID, SELFPAY ==
--- NOTE | 2022-08-19 07:00 | MRI_ITS ---
STUDY: MRI LUMBAR SPINE WITHOUT CONTRAST REASON FOR EXAM: Male, 41 years old. pain TECHNIQUE: Standardized fat and water weighted pulse sequences were obtained in the sagittal and axial planes. COMPARISON: X-ray lumbar spine August 06, 2022 FINDINGS: T12-L1: Normal endplates. Normal disc height, hydration and morphology. Normal bilateral facet joints. Normal central canal and bilateral lateral recesses. Normal bilateral intervertebral neural foramina. Normal lumbar lordosis. There is no substantial scoliosis. Normal conus medullaris that terminates at T12-L1 L1-2: Anterior endplate spurring.. Normal disc height, hydration and minimal annular bulge.. Normal bilateral facet joints. Normal central canal and bilateral lateral recesses. Normal bilateral intervertebral neural foramina. L2-3: Anterior endplate spurring. Grade 1 retrolisthesis Normal disc height, hydration and mild bulging disc osteophyte complex with small right foraminal disc protrusion. Normal bilateral facet joints. Normal central canal and bilateral lateral recesses. Moderate right neural foraminal stenosis and mild narrowing of the left L3-4: Postop change status post posterior and anterior fusion. Desiccation of the disc and small bilateral foraminal disc protrusions.. Mild facet arthropathy.. Normal central canal and bilateral lateral recesses. Moderate bilateral neural foraminal encroachment exaggerated by mild shortening of pedicles. L4-5: Postop change status post right laminectomy Normal endplates. Normal disc height, hydration and mild annular bulge with moderate sized broad-based central/right paracentral disc extrusion with posterior superior migration of disc fragment. Bilateral facet arthropathy.. All narrowing of the central canal and moderate right lateral recess and supra articular recess stenosis. Moderate left neural foraminal stenosis and moderate to severe narrowing on the right L5-S1: Normal endplates. Normal disc height, hydration and small central annular tear and disc protrusion mildly impinging upon the descending S1 nerve roots bilaterally.. Facet arthropathy.. Mild narrowing of the central canal. Normal bilateral lateral recesses. Normal bilateral intervertebral neural foramina. Normal visualized sacral ala. Normal visualized paraspinous soft tissue structures. No significant change since prior study given inherent differences in imaging modalities MRI/Spine Lumbar (Routine) IMPRESSION: No evidence for acute fracture or other significant bony pathology. Postsurgical changes at L3-4 and L4-5. Multilevel spinal stenosis secondary to disc disease and facet arthropathy most severe on the right at L4-5 with findings as above. However, in view of the prior surgery Limited repeat study with contrast may be useful to further differentiate residual recurrent disc disease from epidural fibrosis Electronically Signed: Isidro Goodrich MD at 16:55 EDT ,
== END | disposition home or self-care (01) ==
LOC: MRI 07:44
PROVIDERS: PCP Family Medicine; Referring Provider Orthopaedic Surgery; Visit Provider Orthopaedic Surgery
DX: M54.50 Low back pain, unspecified (principal)
CPT/HCPCS: 72148

== ENCOUNTER → 2023-05-17 | Outpatient (CLI) | payer MEDICAID, SELFPAY ==
[2023-05-17 18:02] LABS: Anion Gap 7 (5-15); BUN 13 mg/dL (7-18); BUN/Creat Ratio 16.1 RATIO (10-20); Calcium,Total 9.4 mg/dL (8.5-10.1); Chloride 106 mmol/L (98-107); Cholesterol 214 mg/dL (200); Creatinine, Serum 0.81 mg/dL (0.70-1.30); EST Glomerular Filtration Rate 112 mL/min (>60); Est Glom Filt Rate - Afr Amer 136 mL/min (>60); Glucose 104 mg/dL (74-106); High Density Lipoprotein 47 mg/dL; Potassium 4.1 mmol/L (3.5-5.1); Sodium Level 138 mmol/L (136-145); Thyroid Stim Hormone (TSH) 1.38 uIU/mL (0.358-3.74); Triglycerides 181 mg/dL; Very Low Density Lipoprotein 36 mg/dL (5-40)
== END | disposition home or self-care (01) ==
LOC: MFPLAB 15:33
PROVIDERS: PCP Family Medicine; Visit Provider Family Medicine
DX: E11.9 Type 2 diabetes mellitus without complications (principal)
CPT/HCPCS: 36415; 80048; 80061; 84443

== ENCOUNTER → 2023-11-15 | Outpatient (CLI) | payer OTHER, SELFPAY ==
[2023-11-15 18:24] LABS: AST(SGOT) 16 U/L (15-37); Alanine Aminotransfer ALT/SGPT 30 U/L (16-61); Albumin, Serum 3.6 g/dL (3.2-5.0); Alkaline Phosphatase 86 U/L (45-117); Anion Gap 7 (5-15); BUN 12 mg/dL (7-18); BUN/Creat Ratio 13.5 RATIO (10-20); Calcium,Total 9.7 mg/dL (8.5-10.1); Chloride 103 mmol/L (98-107); Cholesterol 233 mg/dL (200); Creatinine, Serum 0.89 mg/dL (0.70-1.30); EST Glomerular Filtration Rate 100 mL/min (>60); Est Glom Filt Rate - Afr Amer 121 mL/min (>60); Globulin 3.7 g/dL (2.2-4.2); Glucose 188 mg/dL (74-106); High Density Lipoprotein 47 mg/dL; Potassium 4.2 mmol/L (3.5-5.1); Protein, Total 7.3 g/dL (6.4-8.2); Sodium Level 136 mmol/L (136-145); Triglycerides 253 mg/dL; Very Low Density Lipoprotein 51 mg/dL (5-40)
== END | disposition home or self-care (01) ==
PROVIDERS: PCP Family Medicine; Visit Provider Family Medicine
DX: E11.9 Type 2 diabetes mellitus without complications (principal)
CPT/HCPCS: 36415; 80053; 80061

== ENCOUNTER → 2024-05-04 | Outpatient (CLI) | payer BC, SELFPAY ==
[2024-05-04 13:07] LABS: ALB/GLOB Ratio 1.4 RATIO (0.9-2.4); AST(SGOT) 16 U/L (<=37); Alanine Aminotransfer ALT/SGPT 16 U/L (<=46); Albumin, Serum 4.1 g/dL (3.5-5.0); Alkaline Phosphatase 74 U/L (40-129); Anion Gap 13 (5-15); BUN 18 mg/dL (4-19); BUN/Creat Ratio 22.9 RATIO (10-20); Calcium,Total 9.4 mg/dL (7.6-11.0); Carbon Dioxide 20.9 mmol/L (21.0-32.0); Chloride 104 mmol/L (98-108); EST Glomerular Filtration Rate 113 (>60); Glucose 162 mg/dL (70-99); Potassium 4.6 mmol/L (3.3-5.1); Protein, Total 7.1 g/dL (5.9-8.4); Sodium Level 138 mmol/L (133-145); Total Bilirubin 0.39 mg/dL (0.00-1.30)
[2024-05-04 13:22] LABS: Hemoglobin A1c 8.3 % (<=5.6)
[2024-05-04 13:36] LABS: Cholesterol 216 mg/dL (<=200); High Density Lipoprotein 47 mg/dL; Low Density Lipoprotein Calc. 137 mg/dL; Microalbumin:Creatinine Ratio 2589.9 mg/g CRE; Triglycerides 160 mg/dL; Very Low Density Lipoprotein 32 mg/dL (5-40); cholesterol:hdl ratio screen 4.59
== END | disposition home or self-care (01) ==
LOC: MFPLAB 08:35
PROVIDERS: PCP Family Medicine; Referring Provider Family Medicine; Visit Provider Family Medicine
DX: E11.9 Type 2 diabetes mellitus without complications (principal)
CPT/HCPCS: 36415; 80053; 80061; 82043; 82570; 83036

== ENCOUNTER → 2025-01-10 | Outpatient (CLI) | payer BC, SELFPAY ==
[2025-01-10 12:59] LABS: AST(SGOT) 23 U/L (<=37); Alanine Aminotransfer ALT/SGPT 27 U/L (<=46); Albumin, Serum 4.4 g/dL (3.5-5.0); Alkaline Phosphatase 80 U/L (40-129); Anion Gap 13 (5-15); BUN 20 mg/dL (4-19); BUN/Creat Ratio 25.3 RATIO (10-20); Calcium,Total 9.5 mg/dL (7.6-11.0); Carbon Dioxide 22.2 mmol/L (21.0-32.0); Chloride 105 mmol/L (98-108); Cholesterol 192 mg/dL (<=200); Globulin 3.1 g/dL (2.2-4.2); Glucose 118 mg/dL (70-99); Low Density Lipoprotein Calc. 120 mg/dL; Potassium 4.6 mmol/L (3.3-5.1); Triglycerides 103 mg/dL; Very Low Density Lipoprotein 21 mg/dL (5-40); cholesterol:hdl ratio screen 3.60
== END | disposition home or self-care (01) ==
LOC: MFPLAB 10:16
PROVIDERS: PCP Family Medicine; Visit Provider Family Medicine
DX: E11.9 Type 2 diabetes mellitus without complications (principal)
CPT/HCPCS: 36415; 80053; 80061